=== PATIENT | male | born 1960 | race Caucasian/White ===

== ENCOUNTER 2016-04-12 08:12 | Day surgery (SDC) | payer MEDICARE, BC ==
[~2016-04-12] VITALS: Ht 185.4 cm; Wt 95.6 kg
[~2016-04-12 08:12] MED LIST: ASPIRIN 81M81 MG/TA2 PO; BENADRYL25 M2; BENADRYL25 M2 PO; BUSPAR5 MG PO; CELEXA 20MG20 MG/TAB PO; CELEXA10 MG PO; CELEXA40 MG; CELEXA40 MG PO; CEPHALEXIN500 M1 PO; CETIRIZINE HYDR10 M1 PO; COGENTIN .0.5 MG/TAB PO; COGENTIN 1MG1 MG/TAB PO; DESOXIMETASONE 0.05% TP; EXCEDRIN TENSIO1 CAP PO; GARLIC400 MG PO; GEODON 40MG40 MG PO; GEODON80 MG PO; GLUCOPHAGE1000 MG PO; GLUCOPHAGE500 MG/TAB PO; HUMALOG PEN100 U/ML SC; HUMALOG PEN100 U/ML SQ; HUMALOG100 U/ML SC; HUMALOG100 U/ML SQ; INSLANT SQ; INSULIN; LAMICTAL 100MG100 MG PO; LANTUS100 U/ML SC; LANTUS100 U/ML SQ; LEVOTHROID SO0.15 MG PO; LEVOTHYROXINE0.3 MG PO; LEVOXYL0.125 MG; LEVOXYL0.175 MG PO; LEXAPRO; LEXAPRO20 MG PO; LIPITOR 10MG10 MG PO; LOPERAMIDE HCL2 MG PO; LUMIGAN 2.5 ML2.5 M1 OP; LUMIGAN 7.5 ML7.5 M1 OU; RANITIDINE150 MG PO; SEROQUEL 1100 MG/TAB PO; SEROQUEL 200MG200 MG PO; SEROQUEL 2525 MG/TAB PO; SEROQUEL300 MG; STRATTERA 10MG10 MG PO; SYNTHROID 0.10.15 MG PO; SYNTHROID0.125 MG/T PO; SYNTHROID0.175 MG PO; TESSALON P100 MG/CAP PO; TYLENOL 650MG650 M2 PO; XALATAN EYE DROPS OU; ZANTAC 150MG T150 MG PO
[2016-04-12 08:52] VITALS: BP 110/79; PULSE 81; TEMP 98.4
[2016-04-12] MEDS ORDERED: SEROQUEL 200MG200 MG PO (09:03)
[2016-04-12] MEDS ORDERED: LUMIGAN 7.5 ML7.5 M1 OP (09:04)
[2016-04-12] MEDS ORDERED: SEROQUEL 2525 MG/TAB PO (09:06)
[2016-04-12] MEDS ORDERED: HUMALOG100 U/ML SQ ×2 (09:08→09:09)
[2016-04-12 10:00] VITALS: BP 108/80; PULSE 78; TEMP 97.6
[2016-04-12 10:15] VITALS: BP 107/78; PULSE 80
[2016-04-12 10:30] VITALS: BP 115/78; PULSE 78
[2016-04-12 10:45] VITALS: BP 110/70; PULSE 76
[2016-04-12 13:50] VITALS: BP 99/71; PULSE 88
== END 2016-04-12 11:00 | disposition home or self-care (01) ==
LOC: SDCO 08:12
DX: Z12.11 Encounter for screening for malignant neoplasm of colon (principal); D12.4 Benign neoplasm of descending colon; Z86.010 Personal history of colon polyps; E11.9 Type 2 diabetes mellitus without complications; K21.9 Gastro-esophageal reflux disease without esophagitis; I10 Essential (primary) hypertension; E07.9 Disorder of thyroid, unspecified
CPT/HCPCS: OP; J2250; J3010; J7030

== ENCOUNTER 2016-07-01 19:31 | Emergency (ER) | payer MEDICARE, BC ==
[~2016-07-01] VITALS: Ht 182.9 cm; Wt 90.9 kg
[~2016-07-01 19:31] MED LIST changes: +LUMIGAN 7.5 ML7.5 M1 OP
[2016-07-01 19:33] VITALS: TEMP 100
[2016-07-01 21:13] LABS: BASO # 0.1 (0.0-0.2); BASO % 0.5 % (0.0-2.0); EOS # 0.1 (0.0-0.7); EOS % 0.9 % (0-4.0); GRAN # 9.9 (1.4-6.5); GRAN % 77.6 % (42.2-75.2); HEMATOCRIT 43.5 % (42.0-52.0); LYMPH # 1.7 (1.2-3.4); LYMPH % 13.2 % (20.0-51.0); MEAN CELL VOLUME 83 fl (80.0-100.0); MEAN CORPUSCULAR HEMOGLOBIN 29 pg (27.0-31.0); MEAN CORPUSCULAR HGB CONC 35 g/dl (33.0-37.0); MEAN PLATELET VOLUME 10.2 fl (7.4-10.4); MONO % 7.6 % (1.7-9.3); PLATELET COUNT 273 K/mm3 (130-400); RED BLOOD COUNT 5.25 M/mm3 (4.20-5.60); REDCELL DISTRIBUTION WIDTH-CV 12.2 % (11.5-14.5); WHITE BLOOD COUNT 12.8 K/mm3 (4.8-10.8)
[2016-07-01 21:25] LABS: ADJUSTED CALCIUM 8.9 mg/dL (8.4-10.2); ALANINE AMINOTRANSFERASE 19 U/L (21-72); ALBUMIN 4.1 gm/dL (3.5-5.0); ALKALINE PHOSPHATASE 87 U/L (50-136); ANION GAP 12 mmol/L (7-16); BILIRUBIN,TOTAL 0.8 mg/dL (0.0-1.0); BLOOD UREA NITROGEN 9 mg/dL (9-20); CARBON DIOXIDE 27 mmol/L (22-30); CHLORIDE 97 mmol/L (98-107); CREATININE, serum 0.81 mg/dL (0.66-1.25); GLUCOSE 196 mg/dL (74-106); POTASSIUM 3.8 mmol/L (3.4-5.0); SODIUM 137 mmol/L (137-145); TOTAL PROTEIN 6.7 gm/dL (6.4-8.2)
[2016-07-01 21:26] LABS: ACETAMINOPHEN < 10 ug/mL (10-30); SALICYLATE < 1.0 mg/dL
[2016-07-01 21:35] LABS: AMPHETAMINE URINE NEGATIVE; BARBITURATES URINE NEGATIVE; BENZODIAZEPINES URINE NEGATIVE; BUPRENORPHINE URINE NEGATIVE; METHADONE URINE NEGATIVE; OPIATES URINE NEGATIVE; OXYCODONE URINE NEGATIVE; PHENCYCLIDINE URINE NEGATIVE; PROPOXYPHENE URINE NEGATIVE; THC CANNABINOIDS URINE NEGATIVE
[2016-07-01 23:36] VITALS: BP 137/82; PULSE 91
== END 2016-07-01 23:36 | disposition home or self-care (01) ==
LOC: COL.ER 19:31
PROVIDERS: Emergency Medicine
DX: F23 Brief psychotic disorder (principal); F31.9 Bipolar disorder, unspecified; E10.9 Type 1 diabetes mellitus without complications; Z79.4 Long term (current) use of insulin; F43.10 Post-traumatic stress disorder, unspecified; G80.9 Cerebral palsy, unspecified

== ENCOUNTER 2016-08-31 23:31 | Inpatient (IN) | payer MEDICARE, BC ==
[~2016-08-31] VITALS: Ht 185.4 cm; Wt 96.4 kg
[2016-09-01 00:07] LABS: BASO # 0.1 (0.0-0.2); BASO % 0.4 % (0.0-2.0); EOS # 0.1 (0.0-0.7); EOS % 0.5 % (0-4.0); GRAN # 10.7 (1.4-6.5); GRAN % 80.8 % (42.2-75.2); HEMATOCRIT 45.5 % (42.0-52.0); HEMOGLOBIN 15.6 g/dl (13.5-18.0); LYMPH # 1.3 (1.2-3.4); LYMPH % 9.8 % (20.0-51.0); MEAN CELL VOLUME 82 fl (80.0-100.0); MEAN CORPUSCULAR HEMOGLOBIN 28 pg (27.0-31.0); MEAN CORPUSCULAR HGB CONC 34 g/dl (33.0-37.0); MEAN PLATELET VOLUME 11.1 fl (7.4-10.4); MONO # 1.1 (0.1-0.6); PLATELET COUNT 261 K/mm3 (130-400); RED BLOOD COUNT 5.53 M/mm3 (4.20-5.60); REDCELL DISTRIBUTION WIDTH-CV 12.1 % (11.5-14.5); WHITE BLOOD COUNT 13.2 K/mm3 (4.8-10.8)
[2016-09-01 00:11] LABS: PH 5 (5-8); SQUAMOUS EPITHELIAL None Seen /hpf; URINE APPEARANCE Clear; URINE BACTERIA None Seen /hpf; URINE BILIRUBIN Negative (NEGATIVE); URINE BLOOD Negative (NEGATIVE); URINE COLOR Yellow; URINE GLUCOSE 3+ (NEGATIVE); URINE KETONE Trace (NEGATIVE); URINE RBC 0-2 /hpf; URINE UROBILINOGEN Negative (NEGATIVE); URINE WBC 0-2 /hpf
[2016-09-01 00:21] LABS: ADJUSTED CALCIUM 8.7 mg/dL (8.4-10.2); ALANINE AMINOTRANSFERASE 25 U/L (21-72); ALBUMIN 4.2 gm/dL (3.5-5.0); ALKALINE PHOSPHATASE 124 U/L (50-136); ANION GAP 16 mmol/L (7-16); BLOOD UREA NITROGEN 13 mg/dL (9-20); CALCIUM 8.9 mg/dL (8.4-10.2); CARBON DIOXIDE 22 mmol/L (22-30); CHLORIDE 99 mmol/L (98-107); CREATININE, serum 0.86 mg/dL (0.66-1.25); GLUCOSE 366 mg/dL (74-106); MAGNESIUM 1.6 mg/dL (1.6-2.3); POTASSIUM 3.7 mmol/L (3.4-5.0); SODIUM 138 mmol/L (137-145)
[2016-09-01 00:40] LABS: TROPONIN-I < 0.012 ng/mL (0.000-0.034)
[2016-09-01 01:52] VITALS: BP 127/81; PULSE 115; TEMP 98
[2016-09-01 04:27] VITALS: BP 145/82; PULSE 115; TEMP 98.8
[2016-09-01 07:24] VITALS: BP 142/91; PULSE 112; TEMP 98.3
[2016-09-01 11:35] VITALS: BP 157/78; PULSE 107; TEMP 98.7
[2016-09-01 15:56] VITALS: BP 147/97; PULSE 108; TEMP 98.4
[2016-09-01 21:34] VITALS: BP 144/91; PULSE 102; TEMP 98.4
[2016-09-02] VITALS (7 sets, daily range): BP systolic 102–154; BP diastolic 55–95; PULSE 89–126; TEMP 97.2–100
[2016-09-02 07:56] LABS: BASO # 0.1 (0.0-0.2); BASO % 0.7 % (0.0-2.0); EOS # 0.1 (0.0-0.7); EOS % 1.1 % (0-4.0); GRAN # 8.1 (1.4-6.5); GRAN % 72.2 % (42.2-75.2); HEMATOCRIT 40.7 % (42.0-52.0); HEMOGLOBIN 13.9 g/dl (13.5-18.0); LYMPH # 1.7 (1.2-3.4); LYMPH % 15.2 % (20.0-51.0); MEAN CELL VOLUME 83 fl (80.0-100.0); MEAN CORPUSCULAR HEMOGLOBIN 28 pg (27.0-31.0); MEAN CORPUSCULAR HGB CONC 34 g/dl (33.0-37.0); MEAN PLATELET VOLUME 10.9 fl (7.4-10.4); MONO # 1.2 (0.1-0.6); MONO % 10.5 % (1.7-9.3); PLATELET COUNT 240 K/mm3 (130-400); RED BLOOD COUNT 4.92 M/mm3 (4.20-5.60); REDCELL DISTRIBUTION WIDTH-CV 12.1 % (11.5-14.5); WHITE BLOOD COUNT 11.2 K/mm3 (4.8-10.8)
[2016-09-02 08:15] LABS: CALCIUM 8.5 mg/dL (8.4-10.2); CREATININE, serum 0.73 mg/dL (0.66-1.25); POTASSIUM 3.1 mmol/L (3.4-5.0)
[2016-09-02 14:53] LABS: PROLACTIN 13.3 ng/mL (3.7-17.9)
[2016-09-03 04:14] VITALS: BP 138/92; PULSE 100; TEMP 97.6
[2016-09-03 07:27] LABS: BASO # 0.1 (0.0-0.2); BASO % 0.9 % (0.0-2.0); EOS # 0.6 (0.0-0.7); EOS % 7.1 % (0-4.0); GRAN # 4.6 (1.4-6.5); GRAN % 57.9 % (42.2-75.2); HEMATOCRIT 42.6 % (42.0-52.0); HEMOGLOBIN 14.3 g/dl (13.5-18.0); LYMPH # 1.9 (1.2-3.4); LYMPH % 23.9 % (20.0-51.0); MEAN CELL VOLUME 84 fl (80.0-100.0); MEAN CORPUSCULAR HEMOGLOBIN 28 pg (27.0-31.0); MEAN CORPUSCULAR HGB CONC 34 g/dl (33.0-37.0); MEAN PLATELET VOLUME 11.1 fl (7.4-10.4); MONO # 0.8 (0.1-0.6); MONO % 9.8 % (1.7-9.3); PLATELET COUNT 232 K/mm3 (130-400); RED BLOOD COUNT 5.05 M/mm3 (4.20-5.60); REDCELL DISTRIBUTION WIDTH-CV 12.4 % (11.5-14.5)
[2016-09-03 07:39] LABS: CALCIUM 8.5 mg/dL (8.4-10.2); CREATININE, serum 0.77 mg/dL (0.66-1.25); POTASSIUM 3.8 mmol/L (3.4-5.0)
[2016-09-03 07:40] VITALS: BP 128/88; PULSE 88; TEMP 97.9
[2016-09-03 11:32] VITALS: BP 122/82; PULSE 96; TEMP 98.3
[2016-09-03] MEDS ORDERED: DEPAKOTE ER 50500 MG PO (14:38)
== END 2016-09-03 15:32 | disposition home health service (06) | DRG 948 ==
LOC: COL.ER 23:31 → MEDICAL 09-01 00:21
PROVIDERS: Emergency Medicine; Internal Medicine; Nurse Practitioner Family
DX: R41.82 Altered mental status, unspecified (principal); E87.2 Acidosis; G80.1 Spastic diplegic cerebral palsy; E11.65 Type 2 diabetes mellitus with hyperglycemia; Z79.4 Long term (current) use of insulin; F31.9 Bipolar disorder, unspecified; E87.6 Hypokalemia
CPT/HCPCS: 90791-AI; 99233-AI; 99239; G0378; J0456; J0696; J1650; J1815; J7030; J7050

== ENCOUNTER → 2016-09-06 | Outpatient (CLI) | payer MEDICARE, BC ==
[~2016-09-06] MED LIST changes: +DEPAKOTE ER 50500 MG PO; +DEPAKOTE500 MG PO; +LEVEMIR100 U/ML SQ; +NORCO 325 MG-7.1 TAB PO; +NOVLOG SQ; +VITAMIN D31000 I1 PO
== END ==
LOC: ZCOL.LAB 10:52
DX: R41.82 Altered mental status, unspecified (principal)

== ENCOUNTER 2016-09-21 08:29 | Inpatient (IN) | payer MEDICARE, BC ==
[~2016-09-21] VITALS: Ht 185.4 cm; Wt 96.0 kg
[~2016-09-21 08:29] MED LIST changes: -DEPAKOTE500 MG PO; -LEVEMIR100 U/ML SQ; -NORCO 325 MG-7.1 TAB PO; -NOVLOG SQ; -VITAMIN D31000 I1 PO
[2016-09-21 09:02] LABS: BASO # 0.1 (0.0-0.2); BASO % 0.6 % (0.0-2.0); EOS # 0.6 (0.0-0.7); GRAN # 5.4 (1.4-6.5); GRAN % 57.4 % (42.2-75.2); HEMOGLOBIN 15.5 g/dl (13.5-18.0); LYMPH # 2.4 (1.2-3.4); LYMPH % 25.7 % (20.0-51.0); MEAN CELL VOLUME 85 fl (80.0-100.0); MEAN CORPUSCULAR HEMOGLOBIN 29 pg (27.0-31.0); MEAN CORPUSCULAR HGB CONC 34 g/dl (33.0-37.0); MEAN PLATELET VOLUME 10.4 fl (7.4-10.4); MONO # 0.9 (0.1-0.6); MONO % 9.7 % (1.7-9.3); PLATELET COUNT 267 K/mm3 (130-400); RED BLOOD COUNT 5.44 M/mm3 (4.20-5.60); REDCELL DISTRIBUTION WIDTH-CV 12.2 % (11.5-14.5); WHITE BLOOD COUNT 9.4 K/mm3 (4.8-10.8)
[2016-09-21 09:14] LABS: ADJUSTED CALCIUM 8.9 mg/dL (8.4-10.2); ALBUMIN 3.9 gm/dL (3.5-5.0); BILIRUBIN,TOTAL 0.7 mg/dL (0.0-1.0); CALCIUM 8.8 mg/dL (8.4-10.2); CREATININE, serum 0.79 mg/dL (0.66-1.25); POTASSIUM 3.8 mmol/L (3.4-5.0); TOTAL PROTEIN 6.8 gm/dL (6.4-8.2)
[2016-09-21] MEDS ORDERED: VITAMIN D31000 I1 PO (09:32)
[2016-09-21] MEDS ORDERED: DEPAKOTE500 MG PO (09:33)
[2016-09-21] MEDS ORDERED: LEVEMIR100 U/ML SQ (09:39)
[2016-09-21 11:26] VITALS: BP 138/86; PULSE 95; TEMP 98
[2016-09-21 14:47] VITALS: BP 129/66; PULSE 103; TEMP 98.3
[2016-09-21 17:25] VITALS: BP 128/80; PULSE 100; TEMP 98.1
[2016-09-21 22:00] VITALS: BP 137/89; PULSE 95; TEMP 99.7
[2016-09-22 02:18] VITALS: BP 124/75; PULSE 102; TEMP 99
[2016-09-22 05:00] VITALS: BP 134/65; PULSE 69; TEMP 97.9
[2016-09-22 09:55] VITALS: BP 152/91; PULSE 107; TEMP 99
[2016-09-22 14:03] VITALS: BP 107/71; PULSE 105; TEMP 98.2
[2016-09-22 17:31] VITALS: BP 140/80; PULSE 104; TEMP 98.6
[2016-09-22 22:14] VITALS: BP 126/73; PULSE 106; TEMP 98.4
[2016-09-23 05:41] VITALS: BP 133/71; PULSE 112; TEMP 98.9
[2016-09-23 09:45] VITALS: BP 122/77; PULSE 106; TEMP 98.8
[2016-09-23 14:42] VITALS: BP 128/76; PULSE 108; TEMP 98.5
[2016-09-23 18:10] VITALS: BP 143/82; PULSE 112; TEMP 98
[2016-09-23 22:00] VITALS: BP 131/90; BP 146/50; PULSE 116; PULSE 90; TEMP 97.9; TEMP 98.3
[2016-09-24 02:58] VITALS: BP 146/79; BP 16/79; PULSE 111; TEMP 98.5
[2016-09-24 05:04] VITALS: BP 126/88; PULSE 105; TEMP 98.7
[2016-09-24 09:37] VITALS: BP 108/62; PULSE 100; TEMP 98.6
[2016-09-24 14:32] VITALS: BP 121/69; PULSE 94; TEMP 98
[2016-09-24 17:53] VITALS: BP 150/76; PULSE 103; TEMP 97.9
[2016-09-24 21:53] VITALS: BP 144/95; PULSE 99; TEMP 98.7
[2016-09-25 01:53] VITALS: BP 153/83; PULSE 108; TEMP 99.3
[2016-09-25 05:23] VITALS: BP 147/74; PULSE 101; TEMP 98.2
[2016-09-25 10:12] VITALS: BP 120/70; PULSE 100; TEMP 97.5
[2016-09-25 14:28] VITALS: BP 128/72; PULSE 99; TEMP 98.4
[2016-09-25 17:53] VITALS: BP 138/56; PULSE 94; TEMP 98.3
[2016-09-25 21:36] VITALS: BP 135/64; PULSE 68; TEMP 98
[2016-09-26 01:45] VITALS: BP 136/81; PULSE 98; TEMP 98
[2016-09-26 05:02] VITALS: BP 124/78; PULSE 90; TEMP 97.6
[2016-09-26] MEDS ORDERED: NOVLOG SQ ×3 (09:01)
[2016-09-26] MEDS ORDERED: NORCO 325 MG-7.1 TAB PO (09:02)
[2016-09-26 09:43] VITALS: BP 144/88; PULSE 91; TEMP 98.5
[2016-09-26 09:53] VITALS: BP 144/88; PULSE 91; TEMP 98.5
== END 2016-09-26 11:00 | DRG 200 ==
LOC: COL.ER 08:29 → SURG 09:45
PROVIDERS: Emergency Medicine
PROC: 0W9B30Z Drainage of Left Pleural Cavity with Drainage Device, Percutaneous Approach (ICD-10-PCS; principal; 2016-09-21)
DX: S27.0XXA Traumatic pneumothorax, initial encounter (principal); S22.42XA Multiple fractures of ribs, left side, initial encounter for closed fracture; G80.1 Spastic diplegic cerebral palsy; W18.30XA Fall on same level, unspecified, initial encounter; Z89.412 Acquired absence of left great toe; F41.8 Other specified anxiety disorders
CPT/HCPCS: A9284; J1170; J1815; J2765; J7030; Q9967

== ENCOUNTER → 2017-02-05 | Outpatient (CLI) | payer MEDICARE, BC ==
[~2017-02-05] MED LIST changes: +DEPAKOTE500 MG PO; +LEVEMIR100 U/ML SQ; +NORCO 325 MG-7.1 TAB PO; +NOVLOG SQ; +VITAMIN D31000 I1 PO
[2017-02-05 09:34] LABS: COLLECTION METHOD CLEAN CATCH
[2017-02-05 09:49] LABS: MUCOUS Present /lpf; PH 5 (5-8); SQUAMOUS EPITHELIAL None Seen /hpf; URINE APPEARANCE Clear; URINE BACTERIA None Seen /hpf; URINE BILIRUBIN Negative (NEGATIVE); URINE BLOOD Negative (NEGATIVE); URINE COLOR Yellow; URINE GLUCOSE Negative (NEGATIVE); URINE KETONE Trace (NEGATIVE); URINE LEUKOCYTE ESTERASE Negative (NEGATIVE); URINE PROTEIN(semi-quant) Negative (NEGATIVE); URINE RBC 0-2 /hpf; URINE UROBILINOGEN Negative (NEGATIVE); URINE WBC 0-2 /hpf
== END ==
LOC: ZCOL.LAB 09:22
PROVIDERS: Emergency Medicine
DX: N39.0 Urinary tract infection, site not specified (principal); W06.XXXA Fall from bed, initial encounter

== ENCOUNTER 2017-03-03 13:15 | Outpatient (RCR) | payer MEDICARE, BC | END 2017-03-05 09:17 | disposition home or self-care (01) | LOC: WSPT 13:15 | DX: G80.9 Cerebral palsy, unspecified (principal); R26.2 Difficulty in walking, not elsewhere classified | CPT/HCPCS: G8978-GP; G8979-GP; G8980-GP ==

== ENCOUNTER → 2017-08-13 | Outpatient (CLI) | payer MEDICARE, BC | LOC: COL.RAD 12:08 | DX: G31.89 Other specified degenerative diseases of nervous system (principal); G80.1 Spastic diplegic cerebral palsy ==

== ENCOUNTER → 2017-08-14 | Outpatient (CLI) | payer MEDICARE, BC | LOC: COL.RAD 13:40 | DX: G80.1 Spastic diplegic cerebral palsy (principal); M47.816 Spondylosis without myelopathy or radiculopathy, lumbar region; M48.061 Spinal stenosis, lumbar region without neurogenic claudication; M99.73 Connective tissue and disc stenosis of intervertebral foramina of lumbar region; M51.27 Other intervertebral disc displacement, lumbosacral region ==

== ENCOUNTER 2018-02-15 10:03 | Emergency (ER) | payer MEDICARE, BC ==
[~2018-02-15] VITALS: Ht 188 cm; Wt 95.5 kg
[2018-02-15 10:10] VITALS: TEMP 98.7
[2018-02-15] MEDS ORDERED: BACLOFEN PO (10:38)
[2018-02-15] MEDS ORDERED: LANTUS100 U/ML SQ (10:39)
[2018-02-15 11:34] LABS: BASO % 0.5 % (0.0-2.0); EOS # 0.4 (0.0-0.7); GRAN # 4.6 (1.4-6.5); GRAN % 60.4 % (42.2-75.2); HEMATOCRIT 47.9 % (42.0-52.0); HEMOGLOBIN 16.2 g/dl (13.5-18.0); LYMPH # 1.9 (1.2-3.4); LYMPH % 25.4 % (20.0-51.0); MEAN CELL VOLUME 86 fl (80.0-100.0); MEAN CORPUSCULAR HEMOGLOBIN 29 pg (27.0-31.0); MEAN CORPUSCULAR HGB CONC 34 g/dl (33.0-37.0); MEAN PLATELET VOLUME 10.2 fl (7.4-10.4); MONO # 0.6 (0.1-0.6); PLATELET COUNT 236 K/mm3 (130-400); RED BLOOD COUNT 5.55 M/mm3 (4.20-5.60); REDCELL DISTRIBUTION WIDTH-CV 12.3 % (11.5-14.5)
[2018-02-15 11:46] LABS: ALANINE AMINOTRANSFERASE 22 U/L (21-72); ALBUMIN 3.8 gm/dL (3.5-5.0); ALKALINE PHOSPHATASE 71 U/L (50-136); ANION GAP 8 mmol/L (7-16); AST,SGOT 16 U/L (15-37); BILIRUBIN,TOTAL 0.4 mg/dL (0.0-1.0); BLOOD UREA NITROGEN 9 mg/dL (9-20); C-REACTIVE PROTEIN < 0.5 mg/dL (0.0-0.9); CALCIUM 9.1 mg/dL (8.4-10.2); CARBON DIOXIDE 31 mmol/L (22-30); CHLORIDE 101 mmol/L (98-107); CREATININE, serum 0.69 mg/dL (0.66-1.25); GLUCOSE 219 mg/dL (74-106); POTASSIUM 4.2 mmol/L (3.4-5.0); SODIUM 140 mmol/L (137-145); TOTAL PROTEIN 6.6 gm/dL (6.4-8.2)
[2018-02-15] MEDS ORDERED: LEVAQUIN 750MG750 M1 PO (12:43)
[2018-02-15 13:35] VITALS: BP 141/84; PULSE 77
== END 2018-02-15 13:37 | disposition home or self-care (01) ==
LOC: COL.ER 10:03
PROVIDERS: Physician Assistant
DX: S91.205A Unspecified open wound of left lesser toe(s) with damage to nail, initial encounter (principal); R53.1 Weakness; J18.1 Lobar pneumonia, unspecified organism; F43.10 Post-traumatic stress disorder, unspecified; E11.9 Type 2 diabetes mellitus without complications; Z91.81 History of falling; Z98.890 Other specified postprocedural states; Z79.82 Long term (current) use of aspirin; Z79.4 Long term (current) use of insulin; W19.XXXA Unspecified fall, initial encounter; Y92.009 Unspecified place in unspecified non-institutional (private) residence as the place of occurrence of the external cause

== ENCOUNTER 2018-02-16 13:45 | Outpatient (RCR) | payer MEDICARE, BC ==
[~2018-02-16 13:45] MED LIST changes: +BACLOFEN PO; +LEVAQUIN 750MG750 M1 PO
[2018-02-18] MEDS ORDERED: B-121000 MCG PO (09:11)
[2018-02-18] MEDS ORDERED: COGENTIN 1MG1 MG/TAB PO (09:11)
[2018-02-18] MEDS ORDERED: LUMIGAN 7.5 ML7.5 M1 OP (09:13)
[2018-02-18] MEDS ORDERED: LEVEMIR100 U/ML SQ (09:14)
[2018-02-18] MEDS ORDERED: LIORESAL20 MG PO (09:16)
[2018-04-07] MEDS ORDERED: SEROQUEL 1100 MG/TAB PO (11:56)
[2018-04-07] MEDS ORDERED: LEVEMIR100 U/ML SQ (12:30)
[2018-04-07] MEDS ORDERED: SEROQUEL 2525 MG/TAB PO (15:01)
[2018-04-07] MEDS ORDERED: FLOMAX 0.40.4 MG/CAP PO (15:04)
[2018-04-07] MEDS ORDERED: SYSTANE 0.4%-0.1 SOL OP (15:08)
== END 2018-04-21 | disposition home or self-care (01) ==
LOC: WSPT
DX: G80.1 Spastic diplegic cerebral palsy (principal); Z79.82 Long term (current) use of aspirin; Z79.4 Long term (current) use of insulin; Z79.891 Long term (current) use of opiate analgesic; Z79.899 Other long term (current) drug therapy
CPT/HCPCS: G8978-GP; G8979-GP

== ENCOUNTER → 2018-03-03 | Outpatient (CLI) | payer MEDICARE, BC ==
[~2018-03-03] MED LIST changes: +B-121000 MCG PO; +LIORESAL20 MG PO
== END ==
LOC: ZCOL.LAB 14:31
DX: H92.11 Otorrhea, right ear (principal)

== ENCOUNTER 2018-04-07 08:56 | Inpatient (IN) | payer MEDICARE, BC ==
[~2018-04-07] VITALS: Ht 188 cm; Wt 94.9 kg
[2018-04-07 11:30] VITALS: BP 129/76; PULSE 76; TEMP 98.3
[2018-04-07] MEDS ORDERED: SEROQUEL 1100 MG/TAB PO (11:56)
--- NOTE | 2018-04-07 12:00 | NUR ---
Patient arrived today at 11:00 AM to room 333. His father was by his side and reviewed all medications with this nurse. Dr. Moon's nurse faxed visit note from PCP visit yesterday and this nurse reviewed meds home list med with this list per Dr. Moon. Patient currently not needing the PRN Seroquel 25 mg at this time, so this was left off the med list per patient's father. Patient's father also reported that he is getting 100 mg Seroquel at bed time per Dr. Rizo not the 200 mg at bed time that was listed with Dr. Moon's med list. This change was communicated to Dr. Moon's nurse and this nurse called an updated Dr. Moon this evening as well. Dr. Moon will come by to see patient tomorrow. Victorino is a two person transfer with a gait belt and walker. He gets up very fast and is not steady at all. He has had multiple falls in the past and actually had a fall last night prior to coming over to [facility]. Patient had blood on his scalp and has one small abrasion that appears to be minor. Dr. Cheng put his eyes on it this morning - no sutures needed. Will continue to monitor.
[2018-04-07] MEDS ORDERED: LEVEMIR100 U/ML SQ (12:30)
[2018-04-07] MEDS ORDERED: SEROQUEL 2525 MG/TAB PO (15:01)
[2018-04-07] MEDS ORDERED: FLOMAX 0.40.4 MG/CAP PO (15:04)
[2018-04-07] MEDS ORDERED: SYSTANE 0.4%-0.1 SOL OP (15:08)
--- NOTE | 2018-04-07 20:00 | NUR ---
HS meds all reviewed and given. See admission assessment. Patient alert to self, place and but not to day of week, month or year and has difficulty answering several questions on assessment. Patient max 1 assist transfer to BSC from chair and is only able to take a couple of steps. Sits back in chair. Has bilateral braces on lower legs. Declines snack and Hs care.
--- NOTE | 2018-04-07 23:38 | NUR ---
Patient rests in bed with eyes closed. Respirations with ease.
--- NOTE | 2018-04-08 00:15 | NUR ---
Patient assisted to use urinal, held and emptied by staff.
--- NOTE | 2018-04-08 02:00 | NUR ---
Patient rests with eyes closed. Respirations with ease.
[2018-04-08 05:20] VITALS: BP 116/84; PULSE 81; TEMP 97.7
--- NOTE | 2018-04-08 05:29 | NUR ---
Patient has been resting with eyes closed until this time. Awakened for am med and urinal offered, no void. Returns to resting with eyes closed.
--- NOTE | 2018-04-08 06:45 | NUR ---
Patient used call light to be assisted to the bathroom. He was a max 2 assist with transfer using gait belt and walker. Spent 20 minutes assisting patient with putting braces and shoes on, transferring to toilet and cleaning up urine from floor. Patient has had multiple falls in the past, so chair alarm was on and he did use the call light appropriatly.
--- NOTE | 2018-04-08 11:43 | NUR ---
Patient resting in recliner at this time, call light in reach and alarm is on. Denies pain at this time. Attended all therapies this morning. Ate all his breakfast this morning. See new orders with increased calorie count from 1800 to 1999. Will continue to monitor.
--- NOTE | 2018-04-08 14:02 | NUR ---
Spoke with Dr. Moon - he reported that he wanted Dr. England to see patient not Dr. Ferreira since patient is being followed by Dr. England. This nurse called Dr. Ferreira and updated him on this so he will not need to come back to see patient today. Will contact Dr. England per Dr. Moon's request.
[2018-04-08 15:39] VITALS: BP 133/77; PULSE 88; TEMP 98.3
--- NOTE | 2018-04-08 15:54 | NUR ---
Dr. Cowan was contacted and will be coming by to see patient on Friday of this week.
--- NOTE | 2018-04-08 16:56 | NUR ---
VENKAT met with the patient's father, Sahil, to complete intitial intake. The patient lives in [place] with his father. Sahil reports that the patient needs some assistance with ADLs and has two wheelchairs and a walker. He states that only one of the wheelchairs is small enough to use in the home. The patient also receives home health from [facility] for penitentiary and PT. VENKAT contacted and confirmed services from July at [facility]. The patient's PCP is Dr. Davin Moon and he receives his medications at the [facility]. The patient's father reports no difficulties obtaining his meds. The patient's advanced directives are in EMR. VENKAT did discuss the IPR Team Conference Meeting with the patient's father. VENKAT reviewed physical therapies recommendation for a new walker and for the patient to be re-evaluated next Friday. A family meeting was scheduled for next Friday, 04/15, at 1400. SW to provide the patient and patient's father with the Team Conference Note and continue to follow.
[2018-04-08 18:00] VITALS: BP 133/77; PULSE 88; TEMP 98.3
--- NOTE | 2018-04-08 22:30 | NUR ---
HS meds all reviewed and given earlier. Patient sitting up in recliner until now. Up x 1 to BSC max 2 assist and had lg formed catalino bueno. Nurse wipes patient and pulls brief down and up. Patient incontinent lg amount of urine through pullup and total assist to change. Assisted max 1 to. Nurse removes shoes and changes patient gown. Attends on. Patient denies pain or needs.
--- NOTE | 2018-04-09 01:00 | NUR ---
Assisted patient with attends for him to use the urinal. Voided small amount.
--- NOTE | 2018-04-09 03:15 | NUR ---
Patient has been resting with eyes closed. Respirations with ease.
--- NOTE | 2018-04-09 04:15 | NUR ---
Patient used urinal independently resting back in bed. Brief dry. Voided 400mls. Nurse emptied. Denies pain or needs. Reports yes to been sleeping.
[2018-04-09 05:21] VITALS: BP 117/84; PULSE 71; TEMP 98
--- NOTE | 2018-04-09 09:39 | NUR ---
Left message for Dr. Moon's nurse asking to consider changing ADA diet to Regular as pt is acustomed to regular diet at home, dislikes artificial sweetners (per report), and his BGs have varied 45-276. Also, requested verification for DVT prevention, has SCD's. Report from DAVION Adorno. Pt in chair with eugene leg braces in place, urinal emptied and returned to tray. Pt took pills w/ water. Alert, pleasant, poor memory. States his dad Sahil cares for him at home almost 07/10.
--- NOTE | 2018-04-09 15:30 | NUR ---
VENKAT and SW student met with the patient and patient's father to discuss the IPR Team Conference Note and inform of the team re-evaluating the patient next , 04/15, with a family conference at 1400. The patient reports that he is in agreeance to the plan. SW answered all the fathers questions. The patient's father did have questions on the patient's blood sugar and diet. SW to inform the patient's nurse and continue to follow.
[2018-04-09 16:35] VITALS: BP 120/91; PULSE 93; TEMP 98.6
--- NOTE | 2018-04-09 20:25 | NUR ---
Pt had urinary incont in chair, two assist for cleaning up. Max verbal cues and mod physical assist for amb w/ walker. Pleasant, denies pain. Pt in chair with eugene leg braces in place, urinal & call light in reach, chair alarm on. Report to DAVION Taylor
--- NOTE | 2018-04-09 20:30 | NUR ---
PT SITTING IN RECLINER. ALARM SET. WATCHING BASKETBALL GAME. CALM AND COOPERATIVE. SEIZURE PRECAUTION PADS ON BED. PT DENIES PAIN AT PRESENT TIME. TSLO BRACES TO BLE. WEARS PULLS UPS FOR OCCASIONAL URINAL SPILLAGE. ACCUCHECK 96. ATE 100% HS SNACK. CALL LIGHT IN REACH.
--- NOTE | 2018-04-09 21:00 | NUR ---
MINILAB OPERATOR CHANGED PT'S PULL UPS FROM URINAL SPILLAGE. CLEANED AND APPLIED BARRIER OINTMENT.
--- NOTE | 2018-04-10 | NUR ---
BED ALARM SUNDING. PT SITTING ON EDGE OF BED. VERY UNSTEADY D/T SPACITY. PT TAKING SCD'S OFF. "I CAN'T STAND THEM." ASSISTED BACK TO BED. NEEDED ASSIST WITH LIFTING LEGS INTO BED. CALL LIGHT FOUND ON THE FLOOR. NOW WITHIN REACH. SHOWED PT CALLIGHTS ON SIDERAILS. ALARM RESET.
[2018-04-10 03:58] VITALS: BP 121/72; PULSE 94; TEMP 97.3
--- NOTE | 2018-04-10 08:15 | NUR ---
Report from DAVION Taylor. Pt ate breakfast in bed, took pills with water. Urine concentrated in urinal, emptied and on tray. 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
--- NOTE | 2018-04-10 10:30 | NUR ---
SCDs off as pt OOB for therapies
--- NOTE | 2018-04-10 12:04 | NUR ---
Pt opened plastic container fruit was in, unwrapped saran wrap from sandwich plate, opened bag of chips.
--- NOTE | 2018-04-10 14:23 | NUR ---
Admission FIM scores were reviewed by the team. Team judged the nursing score (1) for Problem Solving to be scored incorrectly as documentation read "needs direction nearly all the time". While the patient dues have difficulty w/ problem solving, they feel he is able to solve routine problems more than 25% of the time but less than 50% of the time; therefore, he should be a FIM score of 2 for Problem Solving.---Dora Coon, Cat Dog Or Other Pet Groomer
[2018-04-10 14:48] VITALS: BP 121/81; PULSE 93; TEMP 98.6
--- NOTE | 2018-04-10 19:14 | NUR ---
Pt toileted at shift change. Report to DAVION Taylor. See Dr. Cowan's new orders. Starting Sinemet (does not have Parkinson's, but hopes this will help with ataxic gait).
--- NOTE | 2018-04-10 20:00 | NUR ---
PT SITTING IN RECLINER. WATCHING TV. CHEERFUL. JOKING AROUND. PT DENIES PAIN. TSLO BLE IN PLACE. MAX 1 ASSIST WITH WC TO BR. NEEDS CUING WITH EACH STEP. VERY UNSTEADY. GENERALIZED ATAXIA. WAITING TILL LATER TO GET READY FOR BED. CHAIR ALARM SET. CALL LIGHT IN [facility].
[2018-04-11 04:45] VITALS: BP 136/83; PULSE 93; TEMP 98.2
--- NOTE | 2018-04-11 07:30 | NUR ---
PT SITTING UP IN BED EATING. ATE 100% OF MEAL. PT TAKES MEDS WELL. NSG ASSESSMENT COMPLETED. PT RESTING.
--- NOTE | 2018-04-11 15:31 | NUR ---
FATHER MADE OUT HIS MEALS AND THIS WAS FAXED. PT DRANK ALL HIS GLUCERNA. DENIES PAIN OR NEEDS. WATCHING TV.
[2018-04-11 16:38] VITALS: BP 111/83; PULSE 85; TEMP 97.6
--- NOTE | 2018-04-11 22:20 | NUR ---
MAX 1 ASSIST TO BR WITH WALKER AND BRACES TO LEGS. VERY UNSTEADY. NEEDS CUES FOR SAFETY. VOIDED W/O DIFF. BACK TO CHAIR. CHAIR ALARM SET.
[2018-04-12 04:36] VITALS: BP 134/89; PULSE 88; TEMP 98.2
--- NOTE | 2018-04-12 07:58 | NUR ---
Report from DAVION Taylor. Pt was in bed, max cues to come from laying to sitting with mod assist for trunk balance. Staff donned eugene leg braces and donned pants up to knees, brought shirt to pt and he changed out of gown and into t-shirt. Max assist with cues and physical assist to amb to BR and back to chair. Does not seem to amb better this morning than two days ago, will continue to monitor throughout the day.
--- NOTE | 2018-04-12 08:09 | NUR ---
Glasses in place, call light in reach, chair alarm on. Pt started to get up from toilet before staff was ready, stressed importance of safety, pt verbalizes understanding. Pt cued how to open milk carton with fork, he is removing lid from OJ and wrap from cereal bowl independently, poured milk on cereal.
--- NOTE | 2018-04-12 09:23 | NUR ---
SCDs off as pt OOB
--- NOTE | 2018-04-12 09:35 | NUR ---
Pt requested to use toilet, one max assist with cues and physical placement of walker as pt amb to BR, ataxia still worse than two days ago.
--- NOTE | 2018-04-12 11:49 | NUR ---
Pt asked to toilet, assisted, movements are more exaggerated but not productive in ambulating.
[2018-04-12 17:55] VITALS: BP 127/108; PULSE 97; TEMP 99
--- NOTE | 2018-04-12 20:20 | NUR ---
Pt incont of urine while in chair. Max assist to amb to BR with FWW and change, cleanse, don new pull up and gown, amb to bed and braces removed, SCDs placed, alarm on, call light and urinal in reach. Report to DAVION Farley.
--- NOTE | 2018-04-12 20:50 | NUR ---
Faxed update on pt's ambulation to [facility] per Dr. Cowan's request for feedback.
--- NOTE | 2018-04-13 01:24 | NUR ---
THE PT WAS BEDRESTING, INC OF URINE, HAD GOTTEN ABOUT 150CC IN THE URINAL, VERBALIZED OF INCREASING INC AND DIFFICULTY MANAGING HIS TOILETING. HE VERBALIZED THAT HE SPENDS A LOT OF TIME EITHER ALONE OR WITH HIS FATHER, HE HAS A SISTER AND NEICES AND GREAT NEICES, BUT DOESN'T GET TO SPEND MUCH TIME WITH THEM. STATED THAT HE HAS, "GOTTEN TO WHERE I REALLY CAN'T WALK ANYMORE, THIS IS REALLY HARD FOR ME AND HARD FOR MY FATHER". DISCUSSED ASSISTED LIVING, SO HTAT HIS FATHER COULD STILL VISIT HIM BUT NOT BE SOLELY CARING FOR HIM, ROUND THE CLOCK ASSISTANCE\\ SUPERVISION, ACTIVITIES IN GROUPS AND INDIVIDUAL. HE STATED THAT HE WOULD LIKE TO TALK WITH A COFFEE SAMPLER ABOUT THIS, STATED THAT HE IS HAVING INCREASED DIFFICULTIES WITH READING AND ASKED IF SOMEONE COULD READ THE INFORMATION WITH HIM. HE REQUIRES SOME ASSISTANCE WITH CARES. READY FOR BED ABOUT 2230. CALLED FOR LIGHTS AND TV OFF.
--- NOTE | 2018-04-13 01:35 | NUR ---
HS ACCUCHECK WAS 71. HS SNACK OF CUP OF ICE CREAM GIVEN.
--- NOTE | 2018-04-13 04:37 | NUR ---
PT WAS MOVING AROUND IN THE BED, SET OFF BED ALARM, STATED THAT HE WAS TRYING TO GET INTO POSITION TO USE HIS URINAL, ASSISTED WITH PLACEMENT AND EMPTYING. DENIED PAIN.
[2018-04-13 05:35] VITALS: BP 122/76; PULSE 74; TEMP 97.7
--- NOTE | 2018-04-13 07:10 | NUR ---
Report received from DAVION Farley. Pt in bed resting, assisted to use urinal. Breakfast provided and moved pt to chair with 2 person assist. chair alarm on, will continue to monitor.
--- NOTE | 2018-04-13 08:00 | NUR ---
Assessment charted. Pt in bed resting, feeling well, gets up to chair with 2 person assist. tolerated well but gait very unsteady. Pt alert and oriented. See assessment for abrasions. Pt used urinal with assistance. Denies pain. Will continue to monitor.
[2018-04-13 15:29] VITALS: BP 137/88; PULSE 94; TEMP 98.2
--- NOTE | 2018-04-13 18:00 | NUR ---
Pt has done well today. Continues to require 2 people in room for transfers and needs continuous cueing to move feet as they "stick to floor" easily. Taking PO well. Visitors this afternoon. Did find small petechial rash to outer hips and belt area of sweatpants. No excoriation noted. Denies needs, replaced mepilex dressings to legs after bath today, will give bedside shift report to nightshift nurse who will resume care.
--- NOTE | 2018-04-14 01:26 | NUR ---
THE PT WAS SITTING UP IN HIS RECLINER AT SHIFT CHANGE, WATCHING TV, ASKED TO GO TO THE BR FOR A BM, MAX 2 ASSIST TO AMBULATE THERE, NO BM, THEN TO THE BED. THE PT HAD BEEN INC OF URINE IN THE CHAIR. HYGIENE ASSISTED, POSITIONED FOR COMFORT. WATCHES TV, ACCUCHECK WAS 68, HS SNACK, MEDS TAKEN WHOLE, PT REQUIRES OBSERVATION AND CUES TO NOT DROP THE PILLS. MEDS TAKEN WHLE WITH WATER. HE CALLED FOR ASSISTANCE TO THE BR AGAIN AT O115, MAX 2 TO TRANSFER TO THE [facility], CUED TO TUCK HIS PENIS IN, BUT HE STILL URINATED ON THE FLOOR. GAS EXPELLED, TO THE BED, POSITIONED FOR COMFORT. ENCOURAGED TO SLEEP THERAPY STARTING IN THE AM.
[2018-04-14 06:32] VITALS: BP 134/85; PULSE 87; TEMP 98
--- NOTE | 2018-04-14 10:39 | NUR ---
Initial visit; Patient thanked Food Operations Manager for looking in on him and offering encouragement and prayer and for keeping him in her prayers.
--- NOTE | 2018-04-14 16:00 | NUR ---
Patient resting in the recliner at this time, call light in reach watching television. Patient reports not having any more hallucinations this afternoon. Dr. Santos DC'd patients Sinemet this morning due to patient having confusion and patient's father reporting hallucinations' yesterday. Will continue to monitor. Denies pain at this time. Tolerating diet well.
[2018-04-14 18:25] VITALS: BP 166/89; PULSE 97; TEMP 98.8
--- NOTE | 2018-04-15 01:30 | NUR ---
THE PT WAS SITTING UP IN HIS RECLINER SHIFT REPORT WAS DONE. SHORT TIME LATER, CHAIR ALARM HEARD, THE PT WAS ATTEMPTING TO GET UP OUT OF THE CHAIR, VERBALIZED URGENT NEED FOR COMMODE. BSC TO HIM, STOOD, PIVOT, LOWERED PANTS AND SAT, URINATING O HIS CLOTHES. HYGIENE ASSISTED, NEW DEPENDS AND HOSPITAL GOWN ON HIM, STOOD, MAX ASSIST TO THE BED. POOR FOLLOW THROUGH WITH CUES.FLOPPED ONTO THE BED. REPOSITIONED FOR COMFORT. AT OO15, HE WAS SETTING OFF HIS BED ALARM HE HAD SCOOTED DOWN TO THE FOOT OF THE BED WITH HIS LEGS HANGING OFF OF THE END. CUES TO GET HIM UP INTO THE BED PROPERLY, STATED THAT HE DIDN'T KNOW WHERE HE WAS TRYING TO GO OR WHAT HE WAS TRYING TO DO, HE ASKED IF HE WAS GOING TO GET ASHOWER SOON. REORIENTED TO THE TIME AND HE IS AWARE THAT IT WAS 0015 AND THAT HE WOULD SHOWER WITH OT IN THERAPY TOMORROW.
--- NOTE | 2018-04-15 01:49 | NUR ---
THE PT'S ACCUCHECK AT HS WAS 54, 2 ICE CREAMS AND MILAN CRACKERS WITH PEANUT BUTTER. ATE 100 %.
--- NOTE | 2018-04-15 02:43 | NUR ---
BEDRESTING WITH EYES CLOSED, RESP EVEN, APPEARS TO GET ADEQUATE SLEEP.
--- NOTE | 2018-04-15 03:09 | NUR ---
THE PTS BED ALARM SOUNDED, UPON ENTERING HIS ROOM, HE STATED THAT HE WAS "TRYING TO READ THIS NOTE", REFERRING TO THE PAIN CHART. GIVEN TO HIM WITH LIGHT ON, THEN REPOSITIONED HIM IN THE BED, ASKED HIM TO NOT GET UP WITHOUT CALLING FOR HELP FIRST AND SETTING OFF HIS ALARM. HE SEEMED UPSET WHEN THIS NURSE TURNED HIS LIGHTS OFF AND WAS EXITING HIS ROOM. STATING, "WELL, I GUESS I'LL JUST LAY HERE AND DO NOTHING!", THIS NURSE ASKED HIM WHAT HE WANTED TO DO IT IS 3AM. HE WAS ENCOURAGED TO TRY AND SLEEP, READ OR WATCH TV.
[2018-04-15 06:11] VITALS: BP 152/94; PULSE 88; TEMP 98.3
--- NOTE | 2018-04-15 06:16 | NUR ---
THE PT SET OFF THE BED ALARM AGAIN, STATED THAT HE WASN'T GETTING UP, "JUST MOVING AROUND", ENCOURAGED HIM TO CALL FOR ASSISTANCE HE SETS OFF A LOUD ALARM. DELONTE 296.
--- NOTE | 2018-04-15 09:20 | NUR ---
Spoke with with Dr. Moon this morning regarding patient's sinimet. He requested that Dr. Cowan be contacted regarding the changes in behavior when being on the Sinemet and the DC of it yesterday per Dr. Santos. This nurse called and left message for Dr. Cowan's nurse to return my call regarding the above. Awaiting a return call.
--- NOTE | 2018-04-15 10:33 | NUR ---
Patient currently receiving ST at this time. Patient has been very anxious today stating that he is bored. Asked ST for any ideas for activities for him to do in evening to occupy his time. Will try word search this afternoon.
--- NOTE | 2018-04-15 13:47 | NUR ---
Patient currently working with PT at this time. Patient continues to have spaciticity difficulties, with patient stating, "My feet are stuck to the floor." Call placed to Dr. Alba regarding patient not being able to sleep last night (Wide awake at 3 AM) per staff. Dr. Alba communicated to this nurse that the Quetiapine at HS was DC'd on 04/13/18 to see if that med could be causing more spaciticity and mobility issues. This nurse reported to Dr. Alba that Patient was having hallucinations on 04/14/18 per staff and patient father and that patient was trying to put his pants on over his head at one point. This was discussed with Dr. Santos and the Sinemet was DC'd per Dr. Santos at that time. Dr. Alba did educate this nurse that Sinemet could cause this type of behavior, but that I needed to make sure and follow up with Dr. England about this change. Dr. Alba ordered Trazadone 50-100 mg Q HS to start tonight, but wanted to have Dr. Cowan review all these med changes prior to putting the order in. This nurse placed a call to Dr. Cowan, awaiting a return call at this time.
--- NOTE | 2018-04-15 15:24 | NUR ---
ALYSE, IPR director, PT, OT, and ST met with patient and his family for a family meeting. Therapy went over patients progress since admit and what the family will need to do at home. Family has concerns about bathing and using the bathroom as well as over night care as patient weighs more than his father who is his primary caregiver. They report [facility]ris does PT with them. We informed them our recommendation would be pt, ot, st, and sn to follow after this discharge and explained that they wouldn't be able to be there daily for bath care etc. After family meeting alyse met with them to discuss private duty home health providing costs and what they can provide. They are interested in hiring someone to come morning and evening to help with bathing and getting him ready for the day/bed. They report patient wouldnt qualify for medicaid at this time. ALYSE talked with them about meeting with an bankruptcy attorney about splitting assests as he lives with his father. Family is open to home assessment and ALYSE will call them later this week to confirm a time friday. Plan is to re [facility] fri04/22/18.
--- NOTE | 2018-04-15 16:24 | NUR ---
Received return call from Dr. England and she restarted patient on Seroquel to begin tonight. If any side effects from Seroquel are observed over night, Sinemet is to be held and Dr. England called. If patient tolerates well nursing staff is to start 1/2 tab of sinemet TID to be taken 1 hour prior to eating his meals. If there are any side effects such as (hallucinations or confusion) from the Sinemet observed nursing staff is to call Dr. Coawn with an update and she will make any changes, recomendations from there. This was communicated to Dr. Alba, Dr. Moon's nurse and to patient's family. This was also put in an additional nursing note to provide information for on coming nurses.
[2018-04-15 19:00] VITALS: BP 128/67; PULSE 111; TEMP 98.5
[2018-04-15 19:50] VITALS: PULSE 96
--- NOTE | 2018-04-15 20:00 | NUR ---
PT SITTING IN RECLINER. CHAIR ALARM SET. PT CALM AND COOPERATIVE AT THIS TIME. ASSISTED TO BSC. MAX 1 ASSIST. VERY UNSTEADY. BRACES TO BILAT LOWER LEGS. HAD MED SOFT FORMED BROWN BM. BACK TO RECLINER. ALARM SET. CALL LIGHT IN REACH. DENIES PAIN. ACCUCHECK 62. ASYMPTOMATIC. GAVE OJ, PEANUT BUTTER AND MILAN CRACKERS. SEE FOR F/U ACCUCHECK.
--- NOTE | 2018-04-15 20:30 | NUR ---
O2 SAT 95% ON 4L. O2 TURNED DOWN TO 3 L. WILL RECHECK 2 SAT AGAIN IN AN HR.
--- NOTE | 2018-04-16 06:02 | NUR ---
NIGHT WAS UNEVENTFUL. SLEPT WELL. NO HALLUCINATIONS. SINEMENT GIVEN.
--- NOTE | 2018-04-16 06:04 | NUR ---
ACCUCHECK 301.
[2018-04-16 06:05] VITALS: BP 129/78; PULSE 80; TEMP 97.4
--- NOTE | 2018-04-16 11:09 | NUR ---
Report from DAVION Taylor. Pt ate breakfast sitting up in bed. Glasses and leg braces in place. To chair after breakfast, alarm on. Oral cares brought to tray. Call light in reach.
--- NOTE | 2018-04-16 11:10 | NUR ---
Pt denies nausea/vomitting, hallucinations, pain. Did report not sleeping well last night. Night nurse stated pt had a "good night, so gave sinemet this morning." Pt asked to toilet, donned gait belt, brought walker, pt stood without needing assistance up, verbal cues given to gain balance before walking, pt continues to push walker too far ahead of himself, therefore cued about this as well. Pt ambulated better this morning than any time on Friday when this nurse last cared for pt. Still some ataxia wherein pt's feet bouncing onto heel in same place, resolves with cue to "diamond picker your foot". Leg strength improved. Cognition about the same as Friday, alert, follows direction, pleasant.
--- NOTE | 2018-04-16 16:08 | NUR ---
VENKAT called and left a vm for patients father about home eval. will follow up tomorrow.
[2018-04-16 17:05] VITALS: BP 117/77; PULSE 92; TEMP 98.3
--- NOTE | 2018-04-16 17:49 | NUR ---
Pt's father visiting, asked questions about BGs and nurse wrote down these last three days- he noticed pt low at HS. Pt denies awareness of hypoglycemia when it happens. Father made menus for tomorrow. Pt in chair with alarm on, call light in reach. Denies pain. A&O, pleasantly cooperative.
--- NOTE | 2018-04-16 19:39 | NUR ---
Report to Puma Baum.
--- NOTE | 2018-04-16 20:00 | NUR ---
Patient in chair resting. Alert and oriented x 3. Shift assessment complete. X2 assist to restroom, with walker and gait belt. Unsteady gait. Requires verbal cues to move. Follows instructions. Denies further needs at this time.
--- NOTE | 2018-04-16 21:45 | NUR ---
Contacted Dr. Moon patient blood sugar at HS was 38, patient denies feeling symptoms of low blood sugar. Offered patient orange juice and snack. Rechecked BS 15 minutes after snack, BS at 44. Dr. Moon aware, per physisian, hold HS insulin. Will continue to monitor.
[2018-04-17 05:51] VITALS: BP 137/90; PULSE 103; TEMP 98.6
--- NOTE | 2018-04-17 06:29 | NUR ---
Patient has rested well through the night. Minimal needs. Incontinent care provided this AM. Denies pain or further needs at this time. Will report off to day shift.
--- NOTE | 2018-04-17 09:34 | NUR ---
Report from DAVION Baum. Pt in bed for breakfast, urinal at bedside, assist emptying. Pt states he slept well last night, is a little groggy, also had low blood glucose last night and levemir was held per Dr. Moon's order. PT arrived and with nurse assisted donning bilateral leg braces, shoes and pants, new pull ups as pt was incont of urine. Pt donned sweater with min trunk support d/t poor sitting balance. CGA with gait belt and verbal cues to stand with walker. PT commented that pt did not walk as far upon initial visist this morning.
--- NOTE | 2018-04-17 09:59 | NUR ---
Home assessment scheduled for friday at 1. Patients father will pick him up.
--- NOTE | 2018-04-17 13:40 | NUR ---
Left message for Dr. Cowan's nurse re: pt's condition and ambulation.
[2018-04-17 18:09] VITALS: BP 91/68; PULSE 90; TEMP 98
--- NOTE | 2018-04-17 19:00 | NUR ---
Dr. Cowan aware of pt's increased urinary incont, decreased ability to amb as well as yesterday, no N/V/D, no hallucinations, but decreased speech volume and clarity- however, pt had low BG last night and was high this am, pt reports sleeping well. Plan to continue meds as ordered, f/u Friday, but do call if any extreme changes before then.
--- NOTE | 2018-04-17 21:00 | NUR ---
Patient assisted 2 assist to stand and take few steps to bed. Patient removes shirt. Max assist lower body undressing and use of urinal. Denies pain. Oriented x 4. HS meds all reviewed and given. Took shake for snack earlier.
--- NOTE | 2018-04-17 23:00 | NUR ---
Rests with eyes closed. Respirations with ease.
--- NOTE | 2018-04-18 02:49 | NUR ---
Patient has been resting with eyes closed. Awakened and urinal placed by nurse. Denies needs.
[2018-04-18 05:08] VITALS: BP 118/82; PULSE 87; TEMP 97.2
--- NOTE | 2018-04-18 05:21 | NUR ---
PATIENT AWAKENED FOR MEDS AND URINAL PLACED/EMPTIED BY NURSE. VOIDED 200MLS DK YELLOW URINE. RETURNS TO RESTING WITH EYES CLOSED.
--- NOTE | 2018-04-18 10:21 | NUR ---
Patient currently at [facility] today. Patient in pleasent mood. Ate all his breakfast. Reported sleeping well last night. Had no incontinence last night per nurse report. Was incontinent in brief only this morning. Denies pain this morning. Will continue to monitor.
--- NOTE | 2018-04-18 13:09 | NUR ---
Patient currently resting in recliner at this time, call light in reach and chair alarm on. Patient ate 100% of his lunch. Denies pain at this time. Reports that he played [employer]boxee at [facility] today and had fun. Filled his drink with ice. Will continue to monitor.
[2018-04-18 16:33] VITALS: BP 120/81; PULSE 92; TEMP 98.1
--- NOTE | 2018-04-18 21:50 | NUR ---
Patient sits up in recliner and stands with CGA then transfers slowly with frequent verbal cueing to the bathroom. Voids. Removes shirt. Nurse assists with gown on. Total assist with lower body undressing. Heavy mod assist to bed. Rests self back in bed. Denies pain. HS meds all reviewed and given. Rests with eyes closed shortly after.
--- NOTE | 2018-04-19 02:01 | NUR ---
Patient has been resting with eyes closed respirations with ease.
--- NOTE | 2018-04-19 03:30 | NUR ---
PATIENT AWAKENED BRIEFLY AND NURSE PLACED URINAL. RETURNS TO RESTING WITH EYES CLOSED.
[2018-04-19 03:44] VITALS: BP 120/88; PULSE 85; TEMP 98.1
--- NOTE | 2018-04-19 07:51 | NUR ---
Patient resting in bed at this time, call light in reach, bed alarm on and has SCD's on. Patient reports sleeping well last night. Tolerating diet well eating 100% of his meals. Denies pain at this time. Will continue to monitor.
[2018-04-19 16:31] VITALS: BP 127/75; PULSE 87; TEMP 98.2
--- NOTE | 2018-04-19 19:30 | NUR ---
Patient ambulated to and from bathroom multiple times today and was a two max assist using gait belt and walker. He was incontinent in brief x 2 this shift. Patient did work on some word search and writing words out per ST suggestion with this nurse. Small area to right calf is scabbed over. Removed mepilex and applied a bandaid. Will continue to monitor. Patient slept very well last night and had no incontinent episodes per night nurse. Patient required a lot of cueing with transfers, but did very well when asking him to march when needing to move his feet. He gets his directions mixed up at times, such as Left or Right and requires instruction for correcting this. Patient in pleasent mood and was looking forward to watching the football gave tonight. Reported off to night nurse.
--- NOTE | 2018-04-20 03:18 | NUR ---
THE PT WAS SITTING UP IN HIS RECLINER WITH HIS FATHER IN TO VISIT, THEY WATCH THE [employer] GAME TOGETHER. HE HAD AN ACCUCHECK OF 119, HS SNACK TAKEN AND HE CALLED FOR ASSISTANCE TO GET READY FOR BED, ABLE TO DOFF HIS SWEATER, ASSISTED WITH SHOES AND BRACES, PANTS AND DONNING OF THE GOWN, MAX 2 ASSIST TO AMBULATE, ASSISTED WITH LEGS INTO THE BED, BOTTOM SLIGHTLY ERYTHEMIC, BARRIER OINTMENT USED, HAD A MED TO LARGE SF BROWN BM, ASSISTED WITH HYGIENE. APPEARS TO GET ADEQUATE SLEEP.
--- NOTE | 2018-04-20 04:54 | NUR ---
THE PT IS BEDRESTING WITH EYES CLOSED, RESP EVEN, APPEARS TO GET ADEQUATE SLEEP.
[2018-04-20 05:04] VITALS: BP 108/73; PULSE 73; TEMP 97.7
--- NOTE | 2018-04-20 07:00 | NUR ---
Report received from DAVION Farley. Pt in bed resting, eating breakfast, denies needs, will continue to monitor.
--- NOTE | 2018-04-20 10:35 | NUR ---
Assessment charted. Pt resting in wheelchair working on ST worksheets. Denies pain. Anticipating shower shortly. Taking PO well, will continue to monitor.
--- NOTE | 2018-04-20 15:31 | NUR ---
Dr. Cowan called for upate on patient, order received for medication changes, implemented changes.
[2018-04-20 16:34] VITALS: BP 108/66; PULSE 93; TEMP 98.3
--- NOTE | 2018-04-20 17:24 | NUR ---
Pt has done well today. Family to visit this afternoon. Continues to take food in very well. Denies pain, will give bedside shift report to nightshift nurse who will resume care.
--- NOTE | 2018-04-21 01:29 | NUR ---
THE PT WAS RESTING IN HIS RECLINER THE SHIFT BEGAN, CALLED FOR HELP TO VOID, THIS NURSE WAS UNABLE TO GE TO HIM FAST ENOUGH AND HE VOIDED INC IN HIS DEPENDS, ON HIS RECLINER AND TO THE FLOOR, ASSITED WITH HYGIENE, FLOOR CLEANED, TRANSFERRED TO THE BED, POSTIONED FOR COMFORT, ACCUCHECK 102, ICE CREAM FOR HS SNACK, CALLED TO REQUEST HIS HOME EVAL RECOMMENDATIONS, COMMENTS ON ALL THE CHANGES THAT WERE RECOMMENDED, DIDN'TAGREE WITH THE SHOWER DOORS BEING DISMANTELED IN TONI OF SHOWER CURTAIN, RATIONALE DISCUSSED WITH HIM. THAT HIS FATHER ISN'T GETTING YOUNGER, NEEDS SAFE ENVIROMENT TO ALLOW FOR HIS SAFE CARE, EASILY POSSIBLE FOR HIM, MAX PATRICA. WHEN ASKED IF HE CAN GET OUT INTO THE YARD ON HIS OWN, HE ASKED, "WHY WOULD i DO THAT?I'M NOT AN OUTDOOR PERSON.", EXPLAINED HOW SUNSHINE, FREAH AIR AND NATURE SERVE TO ELEVATE MOOD. DISMISSED THIS IDEA. HE CALLED X 2 FOR ASSITANCE WITH URINAL BUT DIDN'T VOID. APPEARS TO GET ADEQUATE SLEEP.
[2018-04-21 05:41] VITALS: BP 118/72; PULSE 70; TEMP 97.8
--- NOTE | 2018-04-21 05:56 | NUR ---
APPEARS TO GET ADEQUATE SLEEP, AWAKENED THIS AM FOR VS- VSS. PT IS PLEASANT, NO C\O PAIN OR PROBLEM.
--- NOTE | 2018-04-21 08:38 | NUR ---
Report from DAVION Farley. Pt ate breakfast sitting up in chair, alarm on, call light in reach, glasses in place. Takes pills whole with thin liquids. Denies pain. Called to toilet, TEST GRADER assisted. Pt with ST now.
[2018-04-21 16:22] VITALS: BP 104/69; PULSE 87; TEMP 97.5
--- NOTE | 2018-04-21 18:25 | NUR ---
No acute changes. Father wrote menus for tomorrow. Pt to chair between therapies, eugene braces to BLE. Denies pain.
--- NOTE | 2018-04-22 01:19 | NUR ---
THE PT WAS SITTING UP IN HIS RECLINER FOR ALL OF THE EVENING. WATCHED BASKET BALL ON TV. HE IS A 2 ASSIST FOR SAFETY TO AMBULATE TO THE BR TO VOID AND ATTEMPTED BM, NOT SUCCESSFUL. DOFFED PANTS, SLEEPS IN SWEAT SHIRT AND DEOENDS. SCD'S ON, ACCUCHECK WAS 98, HS SNACK OF ICE CREAM AND MILAN CRACKER WITH PEANUT BUTTER. HE HAD HIS GLUCERNA EARLIER IN THE EVENING.
--- NOTE | 2018-04-22 02:39 | NUR ---
BEDRESTING WITH EYES CLOSED, RESP EVEN.
[2018-04-22 05:22] VITALS: BP 129/70; PULSE 76; TEMP 97.5
--- NOTE | 2018-04-22 10:02 | NUR ---
Patient attending therapy at this time. Patient was independent on opening items with morning meal. Tolerating diet well today. Dr. England adjusted meds see new orders. Denies pain this morning.
--- NOTE | 2018-04-22 13:07 | NUR ---
VENKAT and SW student met with patient and his father to present IPR team conference notes. SW discussed discharge plan of friday and asked them if they were wanting to add more than the PT/OT/SN/ST that we are recommending him go home with. VENKAT discussed time on friday and told him that it could be any time in the afternoon but what works for them we will work around. patients sister is coming and would like to talk as well. SW will follow up with them when she gets here.
[2018-04-22 18:04] VITALS: BP 123/81; PULSE 80; TEMP 98
--- NOTE | 2018-04-22 18:30 | NUR ---
Patient resting in recliner at this time, call light in reach and alarm is on. Patient attended all therapies today, denied pain and ate 100% off all his meals. Denied any questions at this time. VENKAT Ortega med with his father and family this afternoon. See VENKAT Ching note. Reported off to oncoming nurse.
--- NOTE | 2018-04-22 20:30 | NUR ---
Patient sits up in recliner watching TV. Denies pain or needs. HS meds all reviewed and given.
--- NOTE | 2018-04-22 21:00 | NUR ---
Assisted mod 1 assist to stand and wheeled to the bathroom. Max assist with pants down and up. To bed and total assist lower body undressing. Patient removed shirt. Was unable to void.
--- NOTE | 2018-04-23 00:18 | NUR ---
Patient has been resting in bed with eyes closed. Respirations with ease.
--- NOTE | 2018-04-23 02:21 | NUR ---
Patient has been resting with eyes closed.
[2018-04-23 05:11] VITALS: BP 115/82; PULSE 75; TEMP 98.3
--- NOTE | 2018-04-23 06:00 | NUR ---
Patient resting with eyes closed on nurses rounds. Awakened for am meds.
[2018-04-23 11:24] VITALS: BP 121/76; PULSE 81; TEMP 98
--- NOTE | 2018-04-23 11:40 | NUR ---
Patient resting in recliner at this time, call light in reach, alarm on and eating his lunch. Ate all his breakfast this morning. Attended all therapies. Denied pain. Will continue to monitor. This nurse was a one assist this morning with changing his brief. Patient had an incontinent episode in his sweat pants. He did wait for staff to arrive after using the call light. This nurse wiped patient off with bath wipe, changed his brief as well as assist him with putting on his pants and shoes. Patient takes pills whole with water.
--- NOTE | 2018-04-23 16:46 | NUR ---
VENKAT met with patient and patients father to discuss discharge. [facility] doesnt have speech therapy services and [facility] said it is not necessary. Patient is ok with not having [facility] and would like to stick with [facility].
--- NOTE | 2018-04-23 18:00 | NUR ---
Patient in pleasent mood this evening. This nurse transferred him to the toilet, he was a one assist. He pulled his pants down with some incidental assistance. Patient excited about going home today. Discussed discharge with him. Blood sugar was not checked until after patient had eaten his supper. Accucheck was completed and patient was given his scheduled Novolog. Will continue to monitor.
--- NOTE | 2018-04-23 21:30 | NUR ---
HS meds all reviewed and given. Denies pain. Rests back in bed. Declines SCD's.
--- NOTE | 2018-04-23 23:00 | NUR ---
Up to BSC mod 1 assist with frequent verbal cues. Voids and assists some with pullups up. Rests self back in bed.
--- NOTE | 2018-04-24 03:10 | NUR ---
Patient has been resting with eyes closed. Respirations with ease.
[2018-04-24 03:52] VITALS: BP 125/80; PULSE 82; TEMP 97.2
[2018-04-24] MEDS ORDERED: DEPAKOTE 250MG250 MG PO (09:30)
[2018-04-24] MEDS ORDERED: DEPAKOTE500 MG PO (09:32)
[2018-04-24] MEDS ORDERED: SINEMET 25/101 UDTAB PO (09:36)
--- NOTE | 2018-04-24 12:28 | NUR ---
Report from DAVION Adorno. Pt ate breakfast in bed, BRAIN SURGEON assisted pt with dressing and toileting. Pt to chair between toileting, pull ups and braces to BLE, glasses in place. Pt pleasant, alert, cooperative, oriented.
--- NOTE | 2018-04-24 16:31 | NUR ---
SW met with patient and father to present IM and verbally discuss the contents. Patient was agreeable and father signed. Copy Denied original in chart. Patient is dc home today with [facility]/OT/SN and support from family.
--- NOTE | 2018-04-24 17:15 | NUR ---
Patient health summary, discharge instructions, and home med list printed and reviewed with father, Sahil, and pt. Stressed importance of follow up appts, and picking up new prescriptions at pharmacy. Made written corrections to med list and copy to chart. Notified VENKAT Ching when father arrived for her to visit about home health. Belongings gathered by nurse, including home meds from pharmacy, glasses and eugene leg braces in place, pt had own walker. Pt and father denied questions. Pt transported via wheelchair by KRISTI Montano for ride home.
== END 2018-04-24 17:00 | disposition home health service (06) | DRG 948 ==
PROVIDERS: ADMIT Hospitalist
DX: R53.81 Other malaise (principal); G80.1 Spastic diplegic cerebral palsy; Z89.412 Acquired absence of left great toe; Z91.81 History of falling; E11.65 Type 2 diabetes mellitus with hyperglycemia; F31.9 Bipolar disorder, unspecified; F32.9 Major depressive disorder, single episode, unspecified; E03.9 Hypothyroidism, unspecified; I73.9 Peripheral vascular disease, unspecified; N40.0 Benign prostatic hyperplasia without lower urinary tract symptoms; Z79.4 Long term (current) use of insulin
CPT/HCPCS: 99222-AI; 99231-AI; 99232-AI; 99239; J1815

== ENCOUNTER 2018-06-05 03:16 | Inpatient (IN) | payer MEDICARE, BC ==
[~2018-06-05] VITALS: Ht 188 cm; Wt 96.9 kg
[~2018-06-05 03:16] MED LIST changes: +DEPAKOTE 250MG250 MG PO; +FLOMAX 0.40.4 MG/CAP PO; +SINEMET 25/101 UDTAB PO; +SYSTANE 0.4%-0.1 SOL OP
[2018-06-05 03:50] LABS: HEMATOCRIT 45.3 % (42.0-52.0); HEMOGLOBIN 15.4 g/dl (13.5-18.0); MEAN CELL VOLUME 86 fl (80.0-100.0); MEAN CORPUSCULAR HEMOGLOBIN 29 pg (27.0-31.0); MEAN CORPUSCULAR HGB CONC 34 g/dl (33.0-37.0); MEAN PLATELET VOLUME 10.6 fl (7.4-10.4); PLATELET COUNT 176 K/mm3 (130-400); REDCELL DISTRIBUTION WIDTH-CV 12.2 % (11.5-14.5)
[2018-06-05 04:09] LABS: ALBUMIN 3.7 gm/dL (3.5-5.0); BILIRUBIN,TOTAL 0.6 mg/dL (0.0-1.0); C-REACTIVE PROTEIN 1.9 mg/dL (0.0-0.9); CALCIUM 8.9 mg/dL (8.4-10.2); CREATININE, serum 0.72 mg/dL (0.66-1.25); MAGNESIUM 1.3 mg/dL (1.6-2.3); PHOSPHOROUS 3.7 mg/dL (2.5-4.5); POTASSIUM 3.7 mmol/L (3.4-5.0); TOTAL PROTEIN 6.4 gm/dL (6.4-8.2)
[2018-06-05 04:18] LABS: BAND 22 % (0-10); LYMPHOCYTE 6 % (20.0-51.0); NEUTROPHILS 63 % (42.0-75.2)
[2018-06-05 04:19] LABS: PLATELET ESTIMATE NORMAL (NORMAL)
[2018-06-05 05:18] LABS: COLLECTION METHOD CATHETER
[2018-06-05 05:35] LABS: MUCOUS Present /lpf; PH 5 (5-8); SQUAMOUS EPITHELIAL None Seen /hpf; URINE APPEARANCE Hazy; URINE BACTERIA None Seen /hpf; URINE BILIRUBIN Negative (NEGATIVE); URINE BLOOD 3+ (NEGATIVE); URINE COLOR Straw; URINE GLUCOSE 3+ (NEGATIVE); URINE KETONE 1+ (NEGATIVE); URINE LEUKOCYTE ESTERASE 1+ (NEGATIVE); URINE NITRATE Negative (NEGATIVE); URINE PROTEIN(semi-quant) Negative (NEGATIVE); URINE RBC >50 /hpf; URINE UROBILINOGEN Negative (NEGATIVE)
[2018-06-05] MEDS ORDERED: NOVOLOG 100U100 U/M1 SQ (08:03)
[2018-06-05] MEDS ORDERED: DEPAKOTE ER 25250 MG PO (08:07)
[2018-06-05] MEDS ORDERED: DEPAKOTE ER 50500 MG PO (08:08)
[2018-06-05] MEDS ORDERED: SYSTANE 0.4%-0.1 SOL OP (08:10)
[2018-06-05] MEDS ORDERED: COGENTIN 1MG1 MG/TAB PO (08:13)
[2018-06-05] MEDS ORDERED: TRUSOPT OCUMETE10 ML OU (08:14)
[2018-06-05 09:17] VITALS: BP 148/72; PULSE 123; TEMP 100
--- NOTE | 2018-06-05 11:17 | NUR ---
NOTIFED ABOUT NO MEDICATIONS ORDERS & PATIENT FATHER CONCERNS REGAURDING DIET. REPORTS HE WILL WORK ON IT
[2018-06-05 12:21] VITALS: BP 120/71; PULSE 117; TEMP 99.6
[2018-06-05 15:18] VITALS: BP 119/85; PULSE 110; TEMP 98.3
--- NOTE | 2018-06-05 15:58 | NUR ---
VENKAT met with patient and his father to discuss discharge planning. Patient lives with his father who is his current caregiver. Over the past few weeks he has been progressivly getting weaker and has had three falls the last few days. The father worries about being able to care for him if he is unable to get stronger while here. SW talked with them about SNF vs home with private duty home health as well as [facility]. Patient has been in [facility] recently but struggles with motivation when he goes home to continue working on his strength. Patients father doesn't want to put him in LTC yet but private duty help was also discussed when dc from [facility]. Patient does have [facility] but they only come a few times a week and the therapists have been missing visits due to being sick. Patients father would like to talk to Dr connell and see how patient progresses before making a decision. [facility]. Patients PCP is Dr connell and he obtains his medications from [facility]. He has a walker and wheelchair and had a home assessment while in [facility]. VENKAT will follow up this weekend.
--- NOTE | 2018-06-05 18:18 | NUR ---
Patient resting in bed. Student nurse working with patient this afternoon. Patient receiving insulin per orders. Elevated blood sugars at this time. Dinner ordered. Medications did get administered a little behind in time today. Urology consult was called to Dr. Bailey, he will see patient when he finishes in OR. Patient has been voiding frequently, small amounts. New IV was started by stundent nurse. Patient pulled out his prior IV this afternoon. Report to be given to night nurse
--- NOTE | 2018-06-05 18:52 | NUR ---
Patient alert and oriented. Family member visited during the day. Patient resting in bed. Call light within reach and rails up. Reported off to Baltazar RICARDO, C
--- NOTE | 2018-06-05 19:01 | NUR ---
MADE AWARE OF ELEVATED SUGARS, NO NEW ORDERS AT THIS TIME
[2018-06-05 20:00] VITALS: BP 116/64; PULSE 109; TEMP 98.6
--- NOTE | 2018-06-05 22:00 | NUR ---
Patient incontinent of urine requiring linen change. Is alert and oriented, cooperative with staff. SL to right forearm without redness or swelling.
--- NOTE | 2018-06-05 22:00 | NUR ---
Patient awake, in bed watching TV. Is alert and oriented x3. Takes HS meds without problem. Insulin given in his stomach per his request. Lungs are clear, abdomen soft. Has been incontinent of urine this shift, urgency and frequency reported, wearing a depends at this time. No edema noted bilateral lower legs. Ready for bed.
[2018-06-06 00:12] VITALS: BP 137/74; PULSE 111; TEMP 99.6
[2018-06-06 03:57] VITALS: BP 121/70; PULSE 108; TEMP 98.2
--- NOTE | 2018-06-06 06:00 | NUR ---
Patient incontinent of urine, bed linens changed, diana care given. Patient reports urgency and inability to control his bladder.
[2018-06-06 07:32] VITALS: BP 122/59; PULSE 101; TEMP 97
--- NOTE | 2018-06-06 08:00 | NUR ---
Patient in bed resting. Alert and oriented x3. Shift assesment complete. Incontinent of urine, pericare provided. Denies pain or further needs at this time.
[2018-06-06 11:38] VITALS: BP 108/62; PULSE 95; TEMP 98.4
[2018-06-06 15:41] VITALS: BP 112/64; PULSE 101; TEMP 99.8
--- NOTE | 2018-06-06 17:52 | NUR ---
Patient has been up in chair throughout the day. Father in room. Denies pain at this time. Denies further needs at this time. Will report off to welder 2nd shift.
[2018-06-06 19:59] VITALS: BP 101/71; PULSE 101; TEMP 98.2
--- NOTE | 2018-06-06 20:00 | NUR ---
Patient sitting up in chair at bedside. Has bilateral leg braces on. Is alert, watching TV. IV SL to right forearm without redness or swelling. Call light within reach.
--- NOTE | 2018-06-06 21:33 | NUR ---
PATIENT INCONTINENT OF URINE, DEPENDS CHANGED. PATIENT REMAINS UP IN CHAIR.
--- NOTE | 2018-06-06 23:20 | NUR ---
Patient MAX 2 assist with gait belt to bed. Patient very weak, unsteady and was holding onto the chair preventing efficient transfer. Once in bed, patient moves self up with minimal assist. Bilateral lower leg swelling noted after leg braces removed.
[2018-06-07] VITALS: BP 133/83; PULSE 83; TEMP 98
[2018-06-07 04:00] VITALS: BP 130/84; PULSE 70; TEMP 97.7
--- NOTE | 2018-06-07 04:50 | NUR ---
Patient ineffective with urinal usage, total bed change done at this time.
[2018-06-07 07:59] VITALS: BP 117/72; PULSE 84; TEMP 97.6
[2018-06-07 11:24] VITALS: BP 116/70; PULSE 90; TEMP 98.2
[2018-06-07 16:05] VITALS: BP 109/70; PULSE 83; TEMP 98.7
--- NOTE | 2018-06-07 18:30 | NUR ---
Alert. No complaints. Transferred much better with physical therapy today. Requested to exercise more in afternoon. Ambulated slowly with walker and two staff assist to hallway and returned to chair. Dad in room.
[2018-06-07 19:23] VITALS: BP 119/75; PULSE 94; TEMP 98
--- NOTE | 2018-06-07 23:00 | NUR ---
Patient ready for bed. Has been up in chair at bedside since beginning of this shift at 7p. Transfers much better with gait belt and 2 assist, than previous night. Has been using the urinal and minimally incontinent. SL to right forearm without redness or swelling.
[2018-06-08] VITALS (7 sets, daily range): BP systolic 107–136; BP diastolic 65–78; PULSE 72–85; TEMP 97.2–98.2
--- NOTE | 2018-06-08 06:00 | NUR ---
No concerns voiced. IV antibiotic infusing to right forearm without redness or swelling.
--- NOTE | 2018-06-08 11:00 | NUR ---
Patient alert and oriented, answers questions appropriately. See assessment. No c/o urinary frequency, hesitancy or burning. Urinary output adequate. States wishes to return home. Dr Moon here to see patient.
--- NOTE | 2018-06-08 15:38 | NUR ---
SW met with the patient to review discharge plan and to discuss therapies recommendation of IPR. The patient requested that SW speak to his father. SW attempted to contact the patient's father, Sahil. SW left a voicemail and will try to contact him again.
--- NOTE | 2018-06-08 16:44 | NUR ---
VENKAT met with the patient's father, Sahil, and reviewed physical therapies recommendation of considering IPR. The patient's father reports that if therapy and Dr. Moon are recommendating post-acute rehab for the patient, then he is agreeable. VENKAT presented the patient choice form to the patient's father and discussed options. Sahil preferred 1) IPR 2) [facility]. The patient choice form was signed by the patient's father and he was provided a copy. An IPR consult was ordered. Dora, IPR Director, reports that they have no bed available at this time. VENKAT informed the patient's father. VENKAT also contacted and faxed a referral to [facility]. VENKAT awaiting their screening.
--- NOTE | 2018-06-08 22:00 | NUR ---
ASSUMED CARE FOR CABLE TOWER OPERATOR. SITTING UP IN CHAIR WATCHING TV. ASSESSMENT COMPLETE. REQUESTING TO LAY DOWN FOR THE NIGHT. ASSISTED TO BED WITH GAIT BELT/PIVOT. SHOES AND BRACES REMOVED. DENIES PAIN OR DISCOMFORT. ENCOURAGED TO CALL FOR QUESTIONS OR CONCERNS. VERBALIZES UNDERSTANDING. CALL LIGHT WITHIN REACH. BED IN LOW POSITION-WHEELS LOCKED-BED ALARM ON DUE TO HISTORY OF FALLS. HS GLUCOSE WAS 162-NO SLIDING SCALE NEEDED. WILL CONTINUE TO MONITOR.
[2018-06-09 04:33] VITALS: BP 126/88; PULSE 73; TEMP 98.1
--- NOTE | 2018-06-09 05:28 | NUR ---
HAS SLEPT THROUGH THIS SHIFT. NO C/O PAIN OR DISCOMFORT. VS STABLE. BED IN LOW POSITION. WHEELS LOCKED. CALL LIGHT WITHIN REACH. WILL MONITOR.
[2018-06-09 07:38] VITALS: BP 126/79; PULSE 80; TEMP 97.6
--- NOTE | 2018-06-09 08:00 | NUR ---
Dr. Moon in to see patient.
--- NOTE | 2018-06-09 08:45 | NUR ---
Patient in bed resting. Alert and oriented x 3. Answers questions appropriately. Shift assessment complete. Denies pain or further needs at this time.
--- NOTE | 2018-06-09 09:08 | NUR ---
Vivian, at [facility], reports that they can accept the patient for a skilled stay. SW to inform the patient and patient's father and continue to follow.
--- NOTE | 2018-06-09 10:57 | NUR ---
Initial: Hazardous Substances Engineer offered encouragement and support to Victorino's Dad who is Caregiver to his son.
--- NOTE | 2018-06-09 11:29 | NUR ---
First visit from the hitch technician. No needs right now.
[2018-06-09 11:56] VITALS: BP 123/73; PULSE 86; TEMP 97.8
[2018-06-09 15:25] VITALS: BP 126/71; PULSE 77; TEMP 98.8
--- NOTE | 2018-06-09 17:49 | NUR ---
Patient sittin up in chair, waiting for dinner. Denies pain or further needs at this time. Will report off to warehouse shift supervisor.
--- NOTE | 2018-06-09 19:38 | NUR ---
Shift assessment complete at this time. Plan of care reviewed at bedside with patient. Additional time taken to address any other needs or concerns. Denies pain at this time. Will continue to monitor.
[2018-06-09 19:57] VITALS: BP 115/80; PULSE 76; TEMP 98.6
--- NOTE | 2018-06-10 | NUR ---
Pt sleeping comfortably in bed. Denies pain or any other discomfort. Vitals stable at this time. Will continue to monitor.
[2018-06-10 00:15] VITALS: BP 127/74; PULSE 73; TEMP 97.5
[2018-06-10 03:54] VITALS: BP 122/82; PULSE 73; TEMP 97.3
--- NOTE | 2018-06-10 04:00 | NUR ---
Pt sleeping comfortably in bed. Denies pain or any other discomfort. Vitals stable at this time. Will continue to monitor.
--- NOTE | 2018-06-10 07:01 | NUR ---
Bedside report given to DAVION Luther.
--- NOTE | 2018-06-10 07:12 | NUR ---
Report received from DAVION Lamb. Patient resting in bed. Denies needs at this time.
[2018-06-10 07:36] VITALS: BP 114/80; PULSE 74; TEMP 97.5
--- NOTE | 2018-06-10 08:43 | NUR ---
Patient sitting up eating breakfast. Assessment completed. Medications administered with no difficulty. Patient denies pain. Pleasant and compliant with cares. Denies needs.
[2018-06-10] MEDS ORDERED: PROSCAR 5MG5 MG PO (11:53)
[2018-06-10 12:10] VITALS: BP 118/76; PULSE 74; TEMP 97.5
[2018-06-10 12:14] VITALS: BP 118/76; PULSE 74; TEMP 97.5
[2018-06-10] MEDS ORDERED: CIPRO 250MG TA250 MG PO (12:15)
--- NOTE | 2018-06-10 12:32 | NUR ---
VENKAT informed the patient and patient's father of [facility] being able to accept. The patient and his father are agreeable to transfer to [facility] upon discharge. The patient is to discharge today, 06/10, to [facility] for a skilled stay. Transportation was set for around [id number], via [facility]. VENKAT informed the patient, patient's nurse, and the patient's father via phone. They were all in agreeance. VENKAT also presented and explained the IM form to the patient. The patient verbalized understanding, signed, and he was provided a copy. No additional needs at this time.
--- NOTE | 2018-06-10 13:30 | NUR ---
Patient assisted out with [employer] personnel at 1321. All belongings and paperwork sent with patient.
--- NOTE | 2018-06-10 13:36 | NUR ---
Report called to DAVION Cr at [facility] at [phone]. All questions and concerns answered. Call back number left in case any other questions she had.
== END 2018-06-10 13:21 | DRG 690 ==
LOC: COL.ER 03:16 → SURG 06:16
PROVIDERS: Emergency Medicine; ADMIT Emergency Medicine
DX: N39.0 Urinary tract infection, site not specified (principal); G80.1 Spastic diplegic cerebral palsy; F32.9 Major depressive disorder, single episode, unspecified; E11.9 Type 2 diabetes mellitus without complications; Z91.81 History of falling; E03.9 Hypothyroidism, unspecified; Z88.1 Allergy status to other antibiotic agents; Z88.0 Allergy status to penicillin; Z88.2 Allergy status to sulfonamides; Z91.09 Other allergy status, other than to drugs and biological substances
CPT/HCPCS: A4216; J0696; J1815; J3475; J7030

== ENCOUNTER 2018-06-17 15:10 | Inpatient (IN) | payer MEDICARE, BC ==
[~2018-06-17] VITALS: Ht 188 cm; Wt 95.3 kg
[2018-06-17] VITALS (226 sets, daily range): BP systolic 117–145; BP diastolic 79–88; PULSE 104–117; TEMP 98–98.2; O2SAT 94–99
[~2018-06-17 15:10] MED LIST changes: +CIPRO 250MG TA250 MG PO; +DEPAKOTE ER 25250 MG PO; +NOVOLOG 100U100 U/M1 SQ; +PROSCAR 5MG5 MG PO; +TRUSOPT OCUMETE10 ML OU
[2018-06-17 15:55] LABS: HEMATOCRIT 51.7 % (42.0-52.0); HEMOGLOBIN 16.1 g/dl (13.5-18.0); MEAN CELL VOLUME 93 fl (80.0-100.0); MEAN CORPUSCULAR HEMOGLOBIN 29 pg (27.0-31.0); MEAN CORPUSCULAR HGB CONC 31 g/dl (33.0-37.0); MEAN PLATELET VOLUME 10.2 fl (7.4-10.4); PLATELET COUNT 542 K/mm3 (130-400); RED BLOOD COUNT 5.54 M/mm3 (4.20-5.60); REDCELL DISTRIBUTION WIDTH-CV 12.6 % (11.5-14.5)
[2018-06-17 16:00] LABS: ALANINE AMINOTRANSFERASE < 6 U/L (21-72); ALBUMIN 4.4 gm/dL (3.5-5.0); ALKALINE PHOSPHATASE 96 U/L (50-136); ANION GAP 38 mmol/L (7-16); AST,SGOT 27 U/L (15-37); BILIRUBIN,TOTAL 0.4 mg/dL (0.0-1.0); BLOOD UREA NITROGEN 37 mg/dL (9-20); CALCIUM 9.1 mg/dL (8.4-10.2); CHLORIDE 93 mmol/L (98-107); CREATININE, serum 2.26 (0.66-1.25); LIPASE 85 U/L (23-300); POTASSIUM 5.2 mmol/L (3.4-5.0); SODIUM 136 mmol/L (137-145); TOTAL PROTEIN 7.6 gm/dL (6.4-8.2)
[2018-06-17 16:05] LABS: ARTERIAL BLD GAS O2 SATURATION 96.8 % (92-100); ARTERIAL BLD GAS TCO2 CT 4.9; ARTERIAL BLOOD GAS BASE EXCESS -23.2 (-2-2); ARTERIAL BLOOD GAS HCO3 4.5 meq/L (22-26); ARTERIAL BLOOD GAS PO2 103.2 mmHg (80-100)
[2018-06-17 16:06] LABS: ARTERIAL BLOOD GAS PCO2 15.2 mmHg (35-45); ARTERIAL BLOOD GAS pH 7.09 (7.35-7.45)
[2018-06-17 16:08] LABS: CARBON DIOXIDE 5 mmol/L (22-30); GLUCOSE 793 mg/dL (74-106)
[2018-06-17 16:09] LABS: ACETONE,SERUM MODERATE
[2018-06-17 16:32] LABS: BAND 11 % (0-10); LYMPHOCYTE 1 % (20.0-51.0); METAMYELOCYTE 1 % (0-0); NEUTROPHILS 81 % (42.0-75.2)
[2018-06-17 16:35] LABS: MICROCYTOSIS 1+; PLATELET ESTIMATE INCREASED (NORMAL)
--- NOTE | 2018-06-17 17:30 | NUR ---
Admitted to ICU 1 via cot from ED with RN and dad at side. Transferred to bed and monitors applied, orient patient and family to unit. Call light at side and shown how to use. Patient A/O and answers appropriately. Denies pain, only complaint at this time is "I'm afraid of the catheter". Talked with patient at length about catheter insertion, emotional support offered.
[2018-06-17 18:00] LABS: HEMATOCRIT 47.7 % (42.0-52.0); HEMOGLOBIN 15.5 g/dl (13.5-18.0); MEAN CELL VOLUME 90 fl (80.0-100.0); MEAN CORPUSCULAR HEMOGLOBIN 29 pg (27.0-31.0); MEAN CORPUSCULAR HGB CONC 33 g/dl (33.0-37.0); MEAN PLATELET VOLUME 9.9 fl (7.4-10.4); PLATELET COUNT 447 K/mm3 (130-400); RED BLOOD COUNT 5.28 M/mm3 (4.20-5.60); REDCELL DISTRIBUTION WIDTH-CV 12.6 % (11.5-14.5)
--- NOTE | 2018-06-17 18:15 | NUR ---
Dr. Santos notified of blood sugar decrease to 574, orders recieved and Insulin drip adjusted at this time.
[2018-06-17 18:18] LABS: ANISOCYTOSIS 1+; BAND 7 % (0-10); LYMPHOCYTE 6 % (20.0-51.0); NEUTROPHILS 84 % (42.0-75.2); PLATELET ESTIMATE INCREASED (NORMAL)
--- NOTE | 2018-06-17 19:10 | NUR ---
Bedside report given to Ritika RICARDO. Insulin drip verified at this time.
--- NOTE | 2018-06-17 19:15 | NUR ---
Bedside report received from DAVION Metz. Drips and lines reviewed. Transfer of care at this time.
[2018-06-17 19:57] LABS: COLLECTION METHOD CLEAN CATCH
[2018-06-17 19:58] LABS: CALCIUM 8.4 mg/dL (8.4-10.2); CREATININE, serum 1.59 (0.66-1.25); POTASSIUM 4.7 mmol/L (3.4-5.0)
--- NOTE | 2018-06-17 20:00 | NUR ---
Patient resting in bed at this time. Assessment complete. Patient has no complaints of pain or discomfort. He is alert and oriented. No current needs. Assessment reveals tachycardia with normal heart sound S1 and S2. Some mild edema +1 in the lower extremities. Patient's blood sugar is declining steadily. Will continue to monitor. Call light within reach.
[2018-06-17 20:10] LABS: AMORPHOUS CRYSTAL Present /uL; MUCOUS Present /lpf; PH 5 (5-8); SQUAMOUS EPITHELIAL 0-2 /hpf; URINE APPEARANCE Hazy; URINE BACTERIA None Seen /hpf; URINE BILIRUBIN Negative (NEGATIVE); URINE BLOOD 1+ (NEGATIVE); URINE COLOR Yellow; URINE GLUCOSE 3+ (NEGATIVE); URINE KETONE 2+ (NEGATIVE); URINE LEUKOCYTE ESTERASE Negative (NEGATIVE); URINE NITRATE Negative (NEGATIVE); URINE PROTEIN(semi-quant) Negative (NEGATIVE); URINE RBC 0-2 /hpf; URINE UROBILINOGEN Negative (NEGATIVE)
[2018-06-17 21:38] LABS: CALCIUM 8.4 mg/dL (8.4-10.2); CREATININE, serum 1.4 (0.66-1.25); POTASSIUM 4.5 mmol/L (3.4-5.0)
[2018-06-17 23:20] LABS: CALCIUM 7.8 mg/dL (8.4-10.2); CREATININE, serum 1.22 (0.66-1.25); POTASSIUM 4.3 mmol/L (3.4-5.0)
[2018-06-18] VITALS (432 sets, daily range): BP systolic 96–148; BP diastolic 64–95; PULSE 77–105; TEMP 97.3–99.2; O2SAT 83–99
--- NOTE | 2018-06-18 | NUR ---
Patient asleep at this time but awakens easily to name/noise in the room. Assessment complete and no changes from previous. No complaints of pain. Vitals remain stable. No further needs at this time. Will continue to monitor. Call light within reach.
[2018-06-18 01:33] LABS: CALCIUM 7.8 mg/dL (8.4-10.2); CREATININE, serum 1.1 (0.66-1.25)
[2018-06-18 03:36] LABS: CALCIUM 7.7 mg/dL (8.4-10.2); CREATININE, serum 1.07 (0.66-1.25)
--- NOTE | 2018-06-18 04:00 | NUR ---
Patient asleep at this time, but awakens to name. Assessment complete. No changes from previous. Vitals remain stable. No current needs at this time. Will continue to monitor. Call light within reach.
[2018-06-18 05:22] LABS: MEAN CELL VOLUME 86 fl (80.0-100.0); MEAN CORPUSCULAR HGB CONC 35 g/dl (33.0-37.0); MEAN PLATELET VOLUME 9.9 fl (7.4-10.4); RED BLOOD COUNT 4.28 M/mm3 (4.20-5.60); REDCELL DISTRIBUTION WIDTH-CV 12.8 % (11.5-14.5)
[2018-06-18 05:24] LABS: HEMATOCRIT 36.8 % (42.0-52.0); HEMOGLOBIN 12.7 g/dl (13.5-18.0); MEAN CORPUSCULAR HEMOGLOBIN 30 pg (27.0-31.0); PLATELET COUNT 319 K/mm3 (130-400)
[2018-06-18 05:34] LABS: CALCIUM 7.7 mg/dL (8.4-10.2); CREATININE, serum 1.01 (0.66-1.25); POTASSIUM 3.8 mmol/L (3.4-5.0)
--- NOTE | 2018-06-18 07:20 | NUR ---
Bedside report received from DAVION Yost. Care of patient assumed at this time.
--- NOTE | 2018-06-18 07:20 | NUR ---
Bedside report given to DAVION Saldana. All lines and medications reviewed. Transfer of care at this time.
[2018-06-18 07:22] LABS: CALCIUM 7.8 mg/dL (8.4-10.2); CREATININE, serum 1.02 (0.66-1.25); POTASSIUM 3.7 mmol/L (3.4-5.0)
[2018-06-18 07:43] LABS: BAND 14 % (0-10); LYMPHOCYTE 8 % (20.0-51.0); NEUTROPHILS 75 % (42.0-75.2); PLATELET ESTIMATE NORMAL (NORMAL)
[2018-06-18 08:07] LABS: PATHOLOGY DIFF REVIEW OK
--- NOTE | 2018-06-18 08:45 | NUR ---
Patient assessment complete. Patient resting in bed. Denies pain or shortness of breath. No concerns at this time. Will continue to monitor.
[2018-06-18 09:19] LABS: CALCIUM 7.7 mg/dL (8.4-10.2); CREATININE, serum 0.98 (0.66-1.25); POTASSIUM 3.6 mmol/L (3.4-5.0)
--- NOTE | 2018-06-18 11:19 | NUR ---
Report given to DAVION Rosen.
--- NOTE | 2018-06-18 12:00 | NUR ---
Patient transported upstairs in personal wheelchair. Thalia, vice president of nursing, accompanied this nurse, along with patient's father. All patient belongings transported with patient. Patient assisted into bed with gait belt and 3 person assist. Medical floor charge called DAVION Rosen, to notify her of patient arrival.
--- NOTE | 2018-06-18 12:15 | NUR ---
Patient arrived to floor from ICU at this time VIA personal wheelchair. 2:1 assist required for transfer. Patient is observed resting in bed with arms behind head. IV is to left AC with fluids at 150/hr. Denies pain at this time. Lungs are clear, heart is regular, bowel sounds are active to all quadrants. Pedal and radial pulses are readily palpable. Has fermin to dependent drainage with clear yellow urine noted. Does have a bruise to the right ricci. Mepilex dressing noted to coccyx. Patient is alert and oriented. Left great toe is noted to be amputated. Patient was reported to have eaten shortly before coming to floor. Denies wanting any food. Does request a beverage and would like to have diet pepsi. No other needs identified. Call light is within reach, father is at bedside.
--- NOTE | 2018-06-18 13:15 | NUR ---
VENKAT and SW student met with patient and his father to discuss discharge planning. Patient is currently staying at [facility] for long term however they did not save their bed and are not sure they would like him to return there. They would also like a referral sent to [facility]. Choice form for long term completed for [facility] and [facility]. Referrals made to both. Patients PCP is Dr Moon and he obtains his medications from [facility]. Patient lives with his father when he is not in SNF who is his primary caregiver. SW will continue to follow.
--- NOTE | 2018-06-18 16:25 | NUR ---
[facility] unable to accept patient for half-way.
[2018-06-18 16:50] LABS: CALCIUM 7.9 mg/dL (8.4-10.2); CREATININE, serum 0.91 (0.66-1.25); POTASSIUM 3.7 mmol/L (3.4-5.0)
--- NOTE | 2018-06-18 18:37 | NUR ---
Patient finished evening meal, has no needs at this time. States he has a little pain in his left foot but is tolerable. Patient is noted to have some difficulty moving limbs but is very capable of grasping items and has good dexterity. No further needs identified. Call light is within reach.
--- NOTE | 2018-06-18 23:21 | NUR ---
Completed medication administration and assessment; PT tolerated call cares well; PT denied pain at time of assessment; Minimal bilateral foot drop, fermin in place draining to dependent collection bag, 1/2 NS with 20mEq K running at 150ml/hr to LAC; PT A&Ox3, well spoken, x2 asst with personal W/C, BS active x4, intermittent reeducation on acute intervention for hospitalized treatment; No further assessed or reported concerns at time of exit; PT assisted to comfortable position in bed with call light within reach; Will continue to monitor. CDA
--- NOTE | 2018-06-19 03:57 | NUR ---
PT resting well in bed; Rahman draining clear yellow urine to dependent collections bag; 1/2 NS with 20 mEq running to LAC at 150ml/hr; FSBS continue at [facility] with High SS adjustment; No further assessed concerns at time of exit; PT maintained comfortable position in bed with call light within reach; Will continue to monitor. CDA
[2018-06-19 04:52] VITALS: BP 140/88; PULSE 75; TEMP 97.9
--- NOTE | 2018-06-19 06:56 | NUR ---
Report given to DAVION Rosen; No significant changes or events at shift change; dressing in place on coccyx, LAC 1/2 NS with 20 mEq running at 150ml/hr, and fermin removed. CDA
[2018-06-19 07:09] LABS: BASO % 0.2 % (0.0-2.0); EOS % 0.1 % (0-4.0); GRAN # 7.5 (1.4-6.5); HEMATOCRIT 38.3 % (42.0-52.0); LYMPH % 19.1 % (20.0-51.0); MEAN CELL VOLUME 87 fl (80.0-100.0); MEAN CORPUSCULAR HEMOGLOBIN 29 pg (27.0-31.0); MEAN CORPUSCULAR HGB CONC 34 g/dl (33.0-37.0); MEAN PLATELET VOLUME 10.6 fl (7.4-10.4); MONO # 0.7 (0.1-0.6); PLATELET COUNT 236 K/mm3 (130-400); RED BLOOD COUNT 4.43 M/mm3 (4.20-5.60); REDCELL DISTRIBUTION WIDTH-CV 13.3 % (11.5-14.5)
[2018-06-19 07:10] LABS: CALCIUM 7.9 mg/dL (8.4-10.2); CREATININE, serum 0.8 (0.66-1.25)
[2018-06-19 13:11] VITALS: BP 130/82; PULSE 80; TEMP 98.4
--- NOTE | 2018-06-19 14:52 | NUR ---
VENKAT contacted Glen from [facility] to inquire if patient's father has contacted her about patient returning to [facility]. Glen reports she has not spoken with his father but she will contact him today.
--- NOTE | 2018-06-19 15:59 | NUR ---
VENKAT spoke with patient's father about patient returning to [facility]. He reports he is okay with patient returning there. VENKAT will inform [facility] about this decision.
[2018-06-19 16:49] VITALS: BP 137/87; PULSE 75; TEMP 98.2
--- NOTE | 2018-06-19 18:12 | NUR ---
Patient discharged at 1747. Discharge information given and questions asked with appropriate readback. Understands to get medications and glucose monitor tonight. Did ask to have accu check monitored once more so he can compare to his new meter. Has no pain. Personal items taken with patient. Patient chose to ambulate to private vehicle.
[2018-06-19 20:42] VITALS: BP 135/83; PULSE 90; TEMP 98.3
[2018-06-20 00:02] VITALS: BP 141/82; PULSE 73; TEMP 97.4
--- NOTE | 2018-06-20 00:11 | NUR ---
Completed assessment and medication administration; PT tolerated all cares well; PT transferred x2 assist with gait belt and walker to bedside commode; PT continues to use urinal and protective briefs; PT A&Ox4, BS active x4, LCTAB with bilateral diminished bases; Meplex dressing in place for protection ox coccyx; No further assessed or verbalized concerns at time of exit; Completed bed change done prior to exit and positioning; PT assisted to comfortable position in bed with call light and personal item within reach; Will continue to monitor. CDA
--- NOTE | 2018-06-20 01:03 | NUR ---
Per MULUGETA Zuniga able to D/C LAC INT IV without replacement per pending D/C order tomorrow; No replacement IV will be placed at this time. CDA
--- NOTE | 2018-06-20 01:08 | NUR ---
IV removed with full catheter intact; minimal bleeding to site. Pressure dressing in place to LAC. CDA
--- NOTE | 2018-06-20 01:56 | NUR ---
PT resting well in bed with minimal interruptions; LAC IV D/C d/t redness, irritation, and leakage; No further needs assessed or verbalized at times of rounds; PT remained in comfortable position in bed with call light within reach; Pt continues to utilize incontinent protective briefs; Will continues to monitor. CDA
[2018-06-20 04:24] VITALS: BP 157/85; PULSE 68; TEMP 98.1
[2018-06-20 06:27] LABS: BASO % 0.3 % (0.0-2.0); EOS # 0.1 (0.0-0.7); EOS % 1.2 % (0-4.0); GRAN # 3.8 (1.4-6.5); GRAN % 57.7 % (42.2-75.2); HEMATOCRIT 38.4 % (42.0-52.0); HEMOGLOBIN 12.7 g/dl (13.5-18.0); LYMPH % 30.8 % (20.0-51.0); MEAN CELL VOLUME 87 fl (80.0-100.0); MEAN CORPUSCULAR HEMOGLOBIN 29 pg (27.0-31.0); MEAN CORPUSCULAR HGB CONC 33 g/dl (33.0-37.0); MEAN PLATELET VOLUME 10.2 fl (7.4-10.4); MONO # 0.6 (0.1-0.6); MONO % 9.2 % (1.7-9.3); PLATELET COUNT 181 K/mm3 (130-400); RED BLOOD COUNT 4.41 M/mm3 (4.20-5.60); REDCELL DISTRIBUTION WIDTH-CV 13.2 % (11.5-14.5)
[2018-06-20 06:33] LABS: CREATININE, serum 0.83 (0.66-1.25); POTASSIUM 3.6 mmol/L (3.4-5.0)
--- NOTE | 2018-06-20 07:06 | NUR ---
Report given to DAVION Tripp; No significant changes or concerns during change of shift. CDA
[2018-06-20 07:48] VITALS: BP 133/86; PULSE 76; TEMP 98.1
--- NOTE | 2018-06-20 10:20 | NUR ---
Assessment complete.patient awake,alert and oriented x3.denies pain or discomfort at this time.LSCTA.patient's blood glucose stable.all meds given.bed alarm on.hygiene provided and linens changed.patient has no IV access.patient denies any concerns at this time.call light in reach
[2018-06-20 11:01] VITALS: BP 133/86; PULSE 76; TEMP 98.1
--- NOTE | 2018-06-20 11:15 | NUR ---
VENKAT contacted [facility] and the patient will be returning there today, 06/20. [facility] will transport the patient at approximately 1400. VENKAT faxed discharge orders to [facility]. VENKAT presented the IM form to the patient; the patient understood and signed the form. A copy was provided for the patient and the original was placed in the chart. There are no additional needs at this time.
--- NOTE | 2018-06-20 14:47 | NUR ---
PATIENT DISCHARGE TO [facility] AT THIS TIME.ALL PAPERWORK GIVEN TO MINING AND QUARRYING MACHINERY REPAIRER.REPORT CALLED TO NURSE AT [facility].ALL INSTRUCTIONS GIVEN.NO CONCERNS VOICED.STAFF ESCORTED PATIENT OUT.
== END 2018-06-20 14:50 | DRG 638 ==
LOC: COL.ER 15:10 → ICU 16:27 → MEDICAL 06-18 12:56
PROVIDERS: Emergency Medicine; Nurse Practitioner Family; Physician Assistant; ADMIT Internal Medicine
DX: E11.10 Type 2 diabetes mellitus with ketoacidosis without coma (principal); N17.9 Acute kidney failure, unspecified; G80.1 Spastic diplegic cerebral palsy; E86.0 Dehydration; F43.10 Post-traumatic stress disorder, unspecified; Z89.412 Acquired absence of left great toe; F31.9 Bipolar disorder, unspecified; Z79.4 Long term (current) use of insulin; L89.159 Pressure ulcer of sacral region, unspecified stage
CPT/HCPCS: 99231-AI; 99233-AI; 99239; A4216; J0696; J1644; J1815; J2405; J3480; J7030

== ENCOUNTER → 2018-07-02 | Outpatient (REF) ==
[2018-07-02 16:42] LABS: COLLECTION METHOD CLEAN CATCH
[2018-07-02 16:58] LABS: AMORPHOUS CRYSTAL Present /uL; MUCOUS Present /lpf; PH 6 (5-8); SQUAMOUS EPITHELIAL None Seen /hpf; URINE APPEARANCE Hazy; URINE BACTERIA None Seen /hpf; URINE BILIRUBIN Negative (NEGATIVE); URINE BLOOD Negative (NEGATIVE); URINE COLOR Yellow; URINE GLUCOSE Negative (NEGATIVE); URINE KETONE Trace (NEGATIVE); URINE LEUKOCYTE ESTERASE Trace (NEGATIVE); URINE NITRATE Positive (NEGATIVE); URINE PROTEIN(semi-quant) Negative (NEGATIVE); URINE UROBILINOGEN Negative (NEGATIVE)
== END ==
LOC: ZCOL.LAB 16:41
PROVIDERS: Emergency Medicine
DX: N39.0 Urinary tract infection, site not specified (principal)

== ENCOUNTER → 2018-07-15 | Outpatient (CLI) | payer MEDICARE, BC ==
[2018-07-15 17:44] LABS: COLLECTION METHOD CLEAN CATCH
[2018-07-15 17:56] LABS: MUCOUS Present /lpf; PH 5 (5-8); SQUAMOUS EPITHELIAL None Seen /hpf; URINE APPEARANCE Clear; URINE BACTERIA None Seen /hpf; URINE BILIRUBIN Negative (NEGATIVE); URINE BLOOD Negative (NEGATIVE); URINE COLOR Yellow; URINE GLUCOSE 3+ (NEGATIVE); URINE KETONE 1+ (NEGATIVE); URINE LEUKOCYTE ESTERASE Negative (NEGATIVE); URINE NITRATE Negative (NEGATIVE); URINE PROTEIN(semi-quant) Negative (NEGATIVE); URINE RBC 0-2 /hpf; URINE UROBILINOGEN Negative (NEGATIVE)
[2018-07-15 18:51] LABS: CALCIUM 9.6 mg/dL (8.4-10.2); CREATININE, serum 0.74 (0.66-1.25)
== END ==
LOC: ZCOL.LAB 16:41
PROVIDERS: Emergency Medicine
DX: R79.89 Other specified abnormal findings of blood chemistry (principal); R74.0 Nonspecific elevation of levels of transaminase and lactic acid dehydrogenase [LDH]

== ENCOUNTER → 2018-07-23 | Outpatient (REF) | LOC: ZCOL.LAB 15:52 | DX: Z01.89 Encounter for other specified special examinations (principal) ==

== ENCOUNTER → 2018-09-03 | Outpatient (REF) ==
[2018-09-03 06:53] LABS: CHOLESTEROL RISK RATIO 5.7
[2018-09-03 07:24] LABS: THYROID STIMULATING HORMONE 4.29 uIU/mL (0.465-4.680)
[2018-09-03 07:44] LABS: VALPROIC ACID (DEPAKENE) 39.4 ug/mL (50.0-100.0)
== END ==
LOC: ZCOL.LAB 06:11
PROVIDERS: Emergency Medicine
DX: Z01.89 Encounter for other specified special examinations (principal)

== ENCOUNTER → 2018-10-06 | Outpatient (CLI) | payer MEDICARE, BC | LOC: ZCOL.LAB 14:46 | DX: N39.0 Urinary tract infection, site not specified (principal) ==

== ENCOUNTER → 2018-10-07 | Outpatient (CLI) | payer MEDICARE, BC ==
[2018-10-07 13:31] LABS: COLLECTION METHOD CLEAN CATCH
[2018-10-07 14:01] LABS: MUCOUS Present /lpf; PH 5 (5-8); SQUAMOUS EPITHELIAL None Seen /hpf; URINE APPEARANCE Clear; URINE BACTERIA None Seen /hpf; URINE BILIRUBIN Negative (NEGATIVE); URINE BLOOD Negative (NEGATIVE); URINE COLOR Yellow; URINE GLUCOSE 3+ (NEGATIVE); URINE KETONE Trace (NEGATIVE); URINE LEUKOCYTE ESTERASE Negative (NEGATIVE); URINE NITRATE Negative (NEGATIVE); URINE PROTEIN(semi-quant) Negative (NEGATIVE); URINE RBC None Seen /hpf; URINE UROBILINOGEN Negative (NEGATIVE)
== END ==
LOC: ZCOL.LAB 13:11
PROVIDERS: Emergency Medicine
DX: N39.0 Urinary tract infection, site not specified (principal)

== ENCOUNTER → 2018-10-20 | Outpatient (CLI) | payer MEDICARE, BC ==
[2018-10-20 17:46] LABS: PH 5 (5-8); SQUAMOUS EPITHELIAL None Seen /hpf; URINE APPEARANCE Clear; URINE BACTERIA None Seen /hpf; URINE BILIRUBIN Negative (NEGATIVE); URINE BLOOD Negative (NEGATIVE); URINE COLOR Yellow; URINE GLUCOSE 3+ (NEGATIVE); URINE KETONE 1+ (NEGATIVE); URINE LEUKOCYTE ESTERASE Negative (NEGATIVE); URINE NITRATE Negative (NEGATIVE); URINE PROTEIN(semi-quant) Negative (NEGATIVE); URINE RBC None Seen /hpf; URINE UROBILINOGEN Negative (NEGATIVE)
[2018-10-20 20:00] LABS: COLLECTION METHOD CLEAN CATCH
== END ==
LOC: ZCOL.LAB 16:11
PROVIDERS: Emergency Medicine
DX: R82.90 Unspecified abnormal findings in urine (principal)

== ENCOUNTER → 2019-03-24 | Outpatient (CLI) | payer MEDICARE, BC ==
[2019-03-24 17:59] LABS: CALCIUM 8.8 mg/dL (8.4-10.2); CREATININE, serum 0.75 (0.66-1.25); POTASSIUM 4.6 mmol/L (3.4-5.0)
== END ==
LOC: ZCOL.LAB 17:27
PROVIDERS: Emergency Medicine
DX: E10.65 Type 1 diabetes mellitus with hyperglycemia (principal)

== ENCOUNTER → 2019-04-02 | Outpatient (CLI) | payer MEDICARE, BC ==
[2019-04-02 10:56] LABS: CHOLESTEROL RISK RATIO 5.6
== END ==
LOC: ZCOL.LAB 10:38
PROVIDERS: Emergency Medicine
DX: E10.65 Type 1 diabetes mellitus with hyperglycemia (principal)

== ENCOUNTER → 2019-04-14 | Outpatient (CLI) | payer MEDICARE, BC | LOC: ZCOL.LAB 11:40 | DX: E10.65 Type 1 diabetes mellitus with hyperglycemia (principal) ==

== ENCOUNTER → 2019-06-28 | Outpatient (CLI) | payer MEDICARE, BC ==
[2019-06-28 12:04] LABS: ALBUMIN 3.9 gm/dL (3.5-5.0); BILIRUBIN UNCONJUGATED 0.3 mg/dL (0.0-1.1); BILIRUBIN,DIRECT 0.1 mg/dL (0.0-0.4); BILIRUBIN,TOTAL 0.5 mg/dL (0.0-1.0); CALCIUM 9.1 mg/dL (8.4-10.2); CREATININE, serum 0.81 (0.66-1.25); POTASSIUM 3.9 mmol/L (3.4-5.0)
[2019-06-28 12:09] LABS: VALPROIC ACID (DEPAKENE) 82.2 ug/mL (50.0-100.0)
== END ==
LOC: ZCOL.LAB 11:26
PROVIDERS: Emergency Medicine
DX: E10.65 Type 1 diabetes mellitus with hyperglycemia (principal); E78.5 Hyperlipidemia, unspecified; G80.1 Spastic diplegic cerebral palsy

== ENCOUNTER → 2019-06-29 | Outpatient (CLI) | payer MEDICARE, BC ==
[2019-06-29 10:08] LABS: BASO # 0.1 (0.0-0.2); BASO % 0.8 % (0.0-2.0); EOS # 0.8 (0.0-0.7); EOS % 10.4 % (0-4.0); GRAN # 4.4 (1.4-6.5); GRAN % 55.5 % (42.2-75.2); HEMATOCRIT 44.8 % (42.0-52.0); LYMPH # 1.9 (1.2-3.4); LYMPH % 24.2 % (20.0-51.0); MEAN CELL VOLUME 86 fl (80.0-100.0); MEAN CORPUSCULAR HEMOGLOBIN 29 pg (27.0-31.0); MEAN CORPUSCULAR HGB CONC 34 g/dl (33.0-37.0); MEAN PLATELET VOLUME 11.1 fl (7.4-10.4); MONO # 0.7 (0.1-0.6); MONO % 8.5 % (1.7-9.3); PLATELET COUNT 184 K/mm3 (130-400); REDCELL DISTRIBUTION WIDTH-CV 12.4 % (11.5-14.5)
== END ==
LOC: ZCOL.LAB 09:55
PROVIDERS: Emergency Medicine
DX: G80.1 Spastic diplegic cerebral palsy (principal)

== ENCOUNTER → 2019-09-29 | Outpatient (CLI) | payer MEDICARE, BC | LOC: ZCOL.LAB 09:11 | DX: R73.09 Other abnormal glucose (principal) ==

== ENCOUNTER → 2019-10-04 | Outpatient (CLI) | payer MEDICARE, BC | LOC: ZCOL.LAB 11:42 | DX: E10.65 Type 1 diabetes mellitus with hyperglycemia (principal) ==

== ENCOUNTER → 2020-01-17 | Outpatient (CLI) | payer MEDICARE, BC ==
[2020-01-17 14:38] LABS: ALBUMIN 3.4 gm/dL (3.5-5.0); BILIRUBIN,TOTAL 0.4 mg/dL (0.0-1.0); CALCIUM 8.6 mg/dL (8.4-10.2); CREATININE, serum 0.8 (0.66-1.25); POTASSIUM 4.9 mmol/L (3.4-5.0)
== END ==
LOC: ZCOL.LAB 13:07
PROVIDERS: Emergency Medicine
DX: E78.5 Hyperlipidemia, unspecified (principal); E10.65 Type 1 diabetes mellitus with hyperglycemia

== ENCOUNTER → 2020-04-10 | Outpatient (CLI) | payer MEDICARE, BC ==
[2020-04-10 18:19] LABS: ALBUMIN 3.5 gm/dL (3.5-5.0); BILIRUBIN,TOTAL 0.6 mg/dL (0.0-1.0); CALCIUM 8.8 mg/dL (8.4-10.2); CREATININE, serum 0.89 (0.66-1.25); POTASSIUM 4.2 mmol/L (3.4-5.0); TOTAL PROTEIN 6.5 gm/dL (6.4-8.2)
== END ==
LOC: ZCOL.LAB 10:48
PROVIDERS: Emergency Medicine
DX: E10.65 Type 1 diabetes mellitus with hyperglycemia (principal)

== ENCOUNTER → 2020-04-20 | Outpatient (CLI) | payer MEDICARE, BC ==
[2020-04-20 13:32] LABS: BASO # 0.1 (0.0-0.2); BASO % 0.7 % (0.0-2.0); EOS # 0.6 (0.0-0.7); EOS % 7.7 % (0-4.0); GRAN # 4.8 (1.4-6.5); GRAN % 57.8 % (42.2-75.2); HEMATOCRIT 41.9 % (42.0-52.0); HEMOGLOBIN 13.9 g/dl (13.5-18.0); LYMPH # 1.9 (1.2-3.4); LYMPH % 22.6 % (20.0-51.0); MEAN CELL VOLUME 87 fl (80.0-100.0); MEAN CORPUSCULAR HEMOGLOBIN 29 pg (27.0-31.0); MEAN CORPUSCULAR HGB CONC 33 g/dl (33.0-37.0); MONO # 0.9 (0.1-0.6); MONO % 10.8 % (1.7-9.3); PLATELET COUNT 195 K/mm3 (130-400); RED BLOOD COUNT 4.83 M/mm3 (4.20-5.60); REDCELL DISTRIBUTION WIDTH-CV 12.6 % (11.5-14.5)
[2020-04-20 14:13] LABS: THYROID STIMULATING HORMONE 13.3 uIU/mL (0.465-4.680)
== END ==
LOC: ZCOL.LAB 13:04
PROVIDERS: Emergency Medicine
DX: T50.901A Poisoning by unspecified drugs, medicaments and biological substances, accidental (unintentional), initial encounter (principal); E03.2 Hypothyroidism due to medicaments and other exogenous substances; E10.65 Type 1 diabetes mellitus with hyperglycemia; E78.5 Hyperlipidemia, unspecified

== ENCOUNTER 2020-05-14 07:04 | Observation (INO) | payer MEDICARE, BC ==
[~2020-05-14] VITALS: Ht 188 cm; Wt 95.5 kg
[2020-05-14 08:02] LABS: BASO % 0.3 % (0.0-2.0); EOS % 0.1 % (0-4.0); GRAN # 11.8 (1.4-6.5); GRAN % 89.9 % (42.2-75.2); HEMATOCRIT 43.9 % (42.0-52.0); HEMOGLOBIN 14.7 g/dl (13.5-18.0); LYMPH # 0.5 (1.2-3.4); LYMPH % 4.1 % (20.0-51.0); MEAN CELL VOLUME 88 fl (80.0-100.0); MEAN CORPUSCULAR HEMOGLOBIN 29 pg (27.0-31.0); MEAN CORPUSCULAR HGB CONC 34 g/dl (33.0-37.0); MEAN PLATELET VOLUME 12.2 fl (7.4-10.4); MONO # 0.7 (0.1-0.6); PLATELET COUNT 131 K/mm3 (130-400); RED BLOOD COUNT 5.02 M/mm3 (4.20-5.60); REDCELL DISTRIBUTION WIDTH-CV 12.5 % (11.5-14.5)
[2020-05-14 08:12] LABS: ALANINE AMINOTRANSFERASE 10 U/L (4-49); ALBUMIN 3.6 gm/dL (3.5-5.0); ALKALINE PHOSPHATASE 96 U/L (50-136); ANION GAP 9 mmol/L (7-16); AST,SGOT 21 U/L (15-37); BILIRUBIN,TOTAL 0.7 mg/dL (0.0-1.0); BLOOD UREA NITROGEN 18 mg/dL (9-20); C-REACTIVE PROTEIN < 0.5 mg/dL (0.0-0.9); CALCIUM 8.5 mg/dL (8.4-10.2); CARBON DIOXIDE 26 mmol/L (22-30); CHLORIDE 101 mmol/L (98-107); CREATININE, serum 0.86 (0.66-1.25); GLUCOSE 393 mg/dL (74-106); LIPASE 18 U/L (23-300); POTASSIUM 4.1 mmol/L (3.4-5.0); SODIUM 136 mmol/L (137-145); TOTAL PROTEIN 6.6 gm/dL (6.4-8.2)
--- NOTE | 2020-05-14 11:10 | NUR ---
PATIENT ADMITED INTO ROOM 346 FROM ER WITH GI BLEED. ORIENTED BUT SLOW TO RESPOND. PATIENT HAS EXTENSIVE HEALTH HX INCLUDING CEREBRAL PALSY, SEIZURES, AND PARKINSONS. SEIZURE PADS INPLACE. IV ABX INFUSING INTO RIGHT HAND VIA PUMP. NPO. BS IN ER WAS 393 AND PATIENT WAS GIVEN INSULIN. PATIENT SCHEDULED FOR EGD IN AM, SEE ORDERS. HEAD TO TOE ASSESSMENT COMPLETE. ORIENTED TO ROOM. CALL LIGHT IN REACH. BED ALARM ON.
[2020-05-14 11:26] VITALS: BP 133/72; PULSE 89; TEMP 98
--- NOTE | 2020-05-14 11:50 | NUR ---
, & DISCUSSING PATIENT CASE.
[2020-05-14 13:55] LABS: HEMATOCRIT 40.3 % (42.0-52.0); HEMOGLOBIN 13.6 g/dl (13.5-18.0)
[2020-05-14] MEDS ORDERED: LIPITOR 40MG TA40 MG PO (14:25)
[2020-05-14] MEDS ORDERED: LASIX 40MG TABL40 MG PO (14:26)
[2020-05-14] MEDS ORDERED: LASIX 20MG TABL20 MG PO (14:27)
[2020-05-14] MEDS ORDERED: NOVOLOG FLEX100 U/ML SQ ×3 (14:30→14:31)
[2020-05-14] MEDS ORDERED: LEVEMIR FLEX100 U/ML SQ (14:31)
[2020-05-14] MEDS ORDERED: FORT1000TA PO (14:33)
[2020-05-14 16:25] VITALS: BP 119/73; PULSE 82; TEMP 97.6
[2020-05-14 19:27] VITALS: BP 125/64; PULSE 82; TEMP 97.9
--- NOTE | 2020-05-14 20:56 | NUR ---
Katheryn notified of Hgb of 6.7 and EKG.
[2020-05-14 21:15] LABS: HEMOGLOBIN 14.6 g/dl (13.5-18.0)
[2020-05-15] VITALS (14 sets, daily range): BP systolic 110–167; BP diastolic 53–84; PULSE 65–75; TEMP 97.6–98.5
[2020-05-15 06:23] LABS: BASO # 0.1 (0.0-0.2); BASO % 0.6 % (0.0-2.0); EOS # 0.2 (0.0-0.7); EOS % 2.3 % (0-4.0); GRAN # 5.7 (1.4-6.5); GRAN % 64.3 % (42.2-75.2); HEMATOCRIT 38.8 % (42.0-52.0); LYMPH # 1.9 (1.2-3.4); MEAN CELL VOLUME 88 fl (80.0-100.0); MEAN CORPUSCULAR HEMOGLOBIN 30 pg (27.0-31.0); MEAN CORPUSCULAR HGB CONC 34 g/dl (33.0-37.0); MEAN PLATELET VOLUME 11.3 fl (7.4-10.4); MONO % 11.5 % (1.7-9.3); PLATELET COUNT 179 K/mm3 (130-400); RED BLOOD COUNT 4.39 M/mm3 (4.20-5.60); REDCELL DISTRIBUTION WIDTH-CV 12.9 % (11.5-14.5)
[2020-05-15 06:34] LABS: CALCIUM 8.5 mg/dL (8.4-10.2); CREATININE, serum 0.81 (0.66-1.25); POTASSIUM 3.5 mmol/L (3.4-5.0)
--- NOTE | 2020-05-15 07:04 | NUR ---
At 1900 on 05/14/20 patient was lying in bed awake watching television. Patient alert and oriented x's 4, denies pain, scd's placed on patient. No requests or concerns verbalized by patient at this time.
--- NOTE | 2020-05-15 11:01 | NUR ---
First visit from the cork insulation setter. No needs right now.
--- NOTE | 2020-05-15 11:46 | NUR ---
Scratch Polisher met with patient to discuss discharge planning. Patient lives at [facility] and sees Dr. Moon for primary care. Patient has medications administered to him by staff at [facility] and receives assistance with ADLS. Patient advised he uses a walker. Patient has DPOA-HC paperwork in the chart that designates his father, Sahil (ph#[phone]). Patient plans to return to [facility] upon discharge. VENKAT contacted Glen at [facility] who advised they will accept patient upon discharge and actually have updated DPOA-HC paperwork for patient as they copy the hospital has still lists patient's late mother, Keeley. Glen faxed updated DPOA-HC documents that designate Sahil as primary and patient's sister as an alternate. Glen faxed over updated document and VENKAT placed on patient's chart. VENKAT faxed clinical updates to Glen. VENKAT then contacted patient's father, Sahil to review discharge plan. Sahil is in agreement with patient returning to [facility]. VENKAT will continue to follow.
--- NOTE | 2020-05-15 11:47 | NUR ---
Patient to EGD at this time.
--- NOTE | 2020-05-15 11:48 | NUR ---
Patient alert and oriented, answers questions appropriately. See assessment. Abdomen soft, non tender, non distended. Bowel sounds active x4 quads. No flatus. No bowel movement. Lap sites to abdomen with edges well approximated, no redness or drainage noted. HOME drain to lower midline abd, dressing CDI, compressed, scant amount of serosanguious drainage noted. Post op exercises reviewed with patient. No c/o at this time.
--- NOTE | 2020-05-15 11:56 | NUR ---
Patient alert and oriented, answers questions appropriately. See assessment. Abdomen soft, non tender, non distended. Bowel sounds active x4 quads. +Flatus. No bowel movements or emesis. No c/o at this time.
--- NOTE | 2020-05-15 12:40 | NUR ---
10:20 pt. brushed his teeth and had apparent bleeding in basin from rinsing his mouth-reported to Amy
--- NOTE | 2020-05-15 12:47 | NUR ---
Patient returns from EGD, assessment unchanged.
--- NOTE | 2020-05-15 19:42 | NUR ---
awake, alert, oriented x 3, respirations even and unlabored, skin warm and dry. Call bean w/i reach.
[2020-05-16 04:00] VITALS: BP 120/77; PULSE 65; TEMP 97.4
[2020-05-16 07:19] LABS: BASO # 0.1 (0.0-0.2); BASO % 0.8 % (0.0-2.0); EOS # 0.7 (0.0-0.7); EOS % 10.1 % (0-4.0); GRAN # 3.3 (1.4-6.5); GRAN % 49.4 % (42.2-75.2); HEMATOCRIT 37.5 % (42.0-52.0); HEMOGLOBIN 12.7 g/dl (13.5-18.0); LYMPH % 29.7 % (20.0-51.0); MEAN CELL VOLUME 86 fl (80.0-100.0); MEAN CORPUSCULAR HEMOGLOBIN 29 pg (27.0-31.0); MEAN CORPUSCULAR HGB CONC 34 g/dl (33.0-37.0); MEAN PLATELET VOLUME 10.9 fl (7.4-10.4); MONO # 0.7 (0.1-0.6); MONO % 9.8 % (1.7-9.3); PLATELET COUNT 165 K/mm3 (130-400); RED BLOOD COUNT 4.35 M/mm3 (4.20-5.60); REDCELL DISTRIBUTION WIDTH-CV 12.5 % (11.5-14.5)
[2020-05-16 07:29] LABS: CALCIUM 8.3 mg/dL (8.4-10.2); CREATININE, serum 0.78 (0.66-1.25); POTASSIUM 3.6 mmol/L (3.4-5.0)
[2020-05-16] MEDS ORDERED: PROTONIX 40MG T40 MG PO ×2 (07:40)
[2020-05-16] MEDS ORDERED: CARAFATE S1 GM/10 ML PO ×2 (07:41→10:08)
[2020-05-16 08:08] VITALS: BP 129/83; PULSE 63; TEMP 97.6
--- NOTE | 2020-05-16 08:08 | NUR ---
Assessment as charted. Pt resting in bed. Denies c/o pain. IV in right forearm, lacted ringers at 100 ml/hr, no rednessss or swelling noted. SCDs on BLE. Accu check 138.
--- NOTE | 2020-05-16 09:00 | NUR ---
Patient alert and oriented, answers questions appropriately. See assessment. Abdomen soft, non distended. Bowel sounds active x4 quads. +Flatus. No bloody stools or emesis. No c/o pain or discomfort.
--- NOTE | 2020-05-16 09:50 | NUR ---
Cage Unloader was notified that patient to discharge back to [facility] today. VENKAT contacted Regina at [facility] and set transport time for 1030. VENKAT then contacted patient's father, Sahil to provide discharge time. VENKAT faxed discharge orders to [facility]. No additional needs at this time.
[2020-05-16 10:07] VITALS: BP 129/83; PULSE 63; TEMP 97.6
--- NOTE | 2020-05-16 10:38 | NUR ---
INT removed. Catheter intact. Pressure held X1 minute. Bandaid applied
--- NOTE | 2020-05-16 11:04 | NUR ---
Attempted to call report to [facility], no answer after transfer.
--- NOTE | 2020-05-16 11:05 | NUR ---
Patient transfered to [facility] via wheelchair with transporatation staff at 1105. Paperwork sent. Will re-attempt to call report.
[2020-07-28] MEDS ORDERED: IMODIUM 2MG CAPS2 MG PO (06:57)
[2020-07-28] MEDS ORDERED: MIRALAX PA17 GM/Dose PO (06:58)
[2020-07-28] MEDS ORDERED: K-DUR 10 MEQ T10 MEQ PO (06:59)
[2020-07-28] MEDS ORDERED: B-121000 MCG PO (07:00)
== END 2020-05-16 11:00 ==
LOC: COL.ER 07:04 → SURG 10:01
PROVIDERS: Family Medicine; Physician Assistant; ADMIT Internal Medicine
DX: K92.0 Hematemesis (principal); K29.60 Other gastritis without bleeding; K22.10 Ulcer of esophagus without bleeding; K92.1 Melena; K40.90 Unilateral inguinal hernia, without obstruction or gangrene, not specified as recurrent; J44.9 Chronic obstructive pulmonary disease, unspecified; K44.9 Diaphragmatic hernia without obstruction or gangrene; G80.1 Spastic diplegic cerebral palsy; D72.829 Elevated white blood cell count, unspecified; N40.0 Benign prostatic hyperplasia without lower urinary tract symptoms; R56.9 Unspecified convulsions; E03.9 Hypothyroidism, unspecified; E10.8 Type 1 diabetes mellitus with unspecified complications; E78.5 Hyperlipidemia, unspecified; F31.9 Bipolar disorder, unspecified; F43.10 Post-traumatic stress disorder, unspecified; Z20.822 Contact with and (suspected) exposure to COVID-19; Z89.422 Acquired absence of other left toe(s); Z79.4 Long term (current) use of insulin; Z79.899 Other long term (current) drug therapy; Z79.82 Long term (current) use of aspirin; Z88.0 Allergy status to penicillin; Z88.2 Allergy status to sulfonamides; Z88.1 Allergy status to other antibiotic agents; Z91.018 Allergy to other foods
CPT/HCPCS: 99232-AI; 99239; C9113; G0378; J0696; J1815; J2405; J2704; J7120; Q9967

== ENCOUNTER → 2020-05-31 | Outpatient (CLI) | payer MEDICARE, BC ==
[~2020-05-31] MED LIST changes: +CARAFATE S1 GM/10 ML PO; +FORT1000TA PO; +IMODIUM 2MG CAPS2 MG PO; +K-DUR 10 MEQ T10 MEQ PO; +LASIX 20MG TABL20 MG PO; +LASIX 40MG TABL40 MG PO; +LEVEMIR FLEX100 U/ML SQ; +LIPITOR 40MG TA40 MG PO; +MIRALAX PA17 GM/Dose PO; +NOVOLOG FLEX100 U/ML SQ; +PROTONIX 40MG T40 MG PO
[2020-05-31 12:57] LABS: CALCIUM 8.5 mg/dL (8.4-10.2); CREATININE, serum 0.82 (0.66-1.25); POTASSIUM 4.2 mmol/L (3.4-5.0)
== END ==
LOC: ZCOL.LAB 11:58
PROVIDERS: Emergency Medicine
DX: E78.5 Hyperlipidemia, unspecified (principal)

== ENCOUNTER → 2020-06-07 | Outpatient (CLI) | payer MEDICARE, BC ==
[2020-06-07 16:05] LABS: COLLECTION METHOD CLEAN CATCH
[2020-06-07 16:30] LABS: PH 5 (5-8); SQUAMOUS EPITHELIAL None Seen /hpf; URINE APPEARANCE Clear; URINE BACTERIA None Seen /hpf; URINE BILIRUBIN Negative (NEGATIVE); URINE BLOOD Negative (NEGATIVE); URINE COLOR Straw; URINE GLUCOSE 3+ (NEGATIVE); URINE KETONE Trace (NEGATIVE); URINE LEUKOCYTE ESTERASE Negative (NEGATIVE); URINE NITRATE Negative (NEGATIVE); URINE PROTEIN(semi-quant) Negative (NEGATIVE); URINE RBC 0-2 /hpf; URINE UROBILINOGEN Negative (NEGATIVE); URINE WBC 0-2 /hpf
== END ==
LOC: ZCOL.LAB 15:03
PROVIDERS: Emergency Medicine
DX: N39.0 Urinary tract infection, site not specified (principal)

== ENCOUNTER → 2020-06-14 | Outpatient (CLI) | payer MEDICARE, BC ==
[2020-06-14 11:45] LABS: CALCIUM 8.4 mg/dL (8.4-10.2); CREATININE, serum 0.92 (0.66-1.25); POTASSIUM 3.7 mmol/L (3.4-5.0)
== END ==
LOC: ZCOL.LAB 11:16
PROVIDERS: Emergency Medicine
DX: E78.5 Hyperlipidemia, unspecified (principal)

== ENCOUNTER → 2020-07-27 | Outpatient (CLI) | payer MEDICARE, BC ==
[2020-07-27 14:21] LABS: HEMOGLOBIN A1C 8.6 %
[2020-07-27 14:22] LABS: MAGNESIUM 1.7 mg/dL (1.6-2.3)
[2020-07-27 14:58] LABS: VALPROIC ACID (DEPAKENE) 89.1 ug/mL (50.0-100.0)
== END ==
LOC: ZCOL.LAB 13:40
PROVIDERS: Emergency Medicine
DX: E10.65 Type 1 diabetes mellitus with hyperglycemia (principal); E78.5 Hyperlipidemia, unspecified

== ENCOUNTER 2020-07-28 09:18 | Day surgery (SDC) | payer MEDICARE, BC ==
[~2020-07-28] VITALS: Ht 188 cm; Wt 104.5 kg
[2020-07-28 10:39] VITALS: BP 130/76; PULSE 70; TEMP 98.5
[2020-07-28 11:15] VITALS: BP 123/85; PULSE 74; TEMP 97.5
--- NOTE | 2020-07-28 11:15 | NUR ---
Pt to GI [facility] 1 via cart from [employer]. Pt sleeping, awakens to verbal stimuli. Pt denies pain or nausea. HOB raised 50 degrees. Diet soda and muffin given per pt request. Father in room. Will continue to monitor. Call light within reach.
[2020-07-28] MEDS ORDERED: PROTONIX 40MG T40 MG PO (11:22)
[2020-07-28 11:30] VITALS: BP 112/74; PULSE 73
--- NOTE | 2020-07-28 11:30 | NUR ---
Pt tolerating food and fluids without difficulties. Pt denies needs. Call light within reach.
[2020-07-28 11:45] VITALS: BP 114/78; PULSE 66
--- NOTE | 2020-07-28 11:45 | NUR ---
Report given to Araseli RICARDO at [facility]. Questions invited and answered.
--- NOTE | 2020-07-28 12:00 | NUR ---
Discharge instructions reviewed with pt's father. Pt and father voice understanding. IV site discontinued with all parts intact. Pt assisted with dressing and 2 assist transfer to wheel chair.
--- NOTE | 2020-07-28 12:15 | NUR ---
Pt escorted to transportation vehicle. Pt assisted to [facility] by [employer] transportation.
== END 2020-07-28 12:15 | disposition home or self-care (01) ==
LOC: SDCO 09:18
DX: K22.10 Ulcer of esophagus without bleeding (principal); K44.9 Diaphragmatic hernia without obstruction or gangrene; K22.4 Dyskinesia of esophagus; E78.5 Hyperlipidemia, unspecified; G80.1 Spastic diplegic cerebral palsy; E10.40 Type 1 diabetes mellitus with diabetic neuropathy, unspecified; E66.9 Obesity, unspecified; Z20.822 Contact with and (suspected) exposure to COVID-19; E03.9 Hypothyroidism, unspecified; F31.9 Bipolar disorder, unspecified; Z79.890 Hormone replacement therapy; Z79.4 Long term (current) use of insulin; Z82.49 Family history of ischemic heart disease and other diseases of the circulatory system; Z79.899 Other long term (current) drug therapy
CPT/HCPCS: J2704; J7030

== ENCOUNTER → 2021-01-18 | Outpatient (CLI) | payer MEDICARE, BC ==
[2021-01-18 10:54] LABS: BASO % 0.5 % (0.0-2.0); EOS # 0.3 K/mm3 (0.0-0.7); EOS % 3.3 % (0-4.0); GRAN # 4.8 K/mm3 (1.4-6.5); GRAN % 63.7 % (42.2-75.2); HEMATOCRIT 41.4 % (42.0-52.0); HEMOGLOBIN 13.5 g/dl (13.5-18.0); LYMPH # 1.6 K/mm3 (1.2-3.4); LYMPH % 21.4 % (20.0-51.0); MEAN CELL VOLUME 88 fl (80.0-100.0); MEAN CORPUSCULAR HEMOGLOBIN 29 pg (27.0-31.0); MEAN CORPUSCULAR HGB CONC 33 g/dl (33.0-37.0); MEAN PLATELET VOLUME 12.7 fl (7.4-10.4); MONO # 0.8 K/mm3 (0.1-0.6); MONO % 10.6 % (1.7-9.3); PLATELET COUNT 201 K/mm3 (130-400); RED BLOOD COUNT 4.69 M/mm3 (4.20-5.60); REDCELL DISTRIBUTION WIDTH-CV 12.8 % (11.5-14.5)
== END ==
LOC: ZCOL.LAB 09:16
PROVIDERS: Family Medicine
DX: E10.65 Type 1 diabetes mellitus with hyperglycemia (principal); E78.5 Hyperlipidemia, unspecified; K25.9 Gastric ulcer, unspecified as acute or chronic, without hemorrhage or perforation

== ENCOUNTER → 2021-03-05 | Outpatient (CLI) | payer MEDICARE, BC ==
[2021-03-05 11:12] LABS: BASO # 0.1 K/mm3 (0.0-0.2); BASO % 0.8 % (0.0-2.0); EOS # 0.1 K/mm3 (0.0-0.7); EOS % 1.9 % (0.0-4.0); GRAN % 62.1 % (42.2-75.2); HEMATOCRIT 40.6 % (42.0-52.0); HEMOGLOBIN 13.4 g/dl (13.5-18.0); LYMPH # 1.6 K/mm3 (1.2-3.4); LYMPH % 24.6 % (20.0-51.0); MEAN CELL VOLUME 87 fl (80.0-100.0); MEAN CORPUSCULAR HEMOGLOBIN 29 pg (27-31); MEAN CORPUSCULAR HGB CONC 33 g/dl (33.0-37.0); MEAN PLATELET VOLUME 12.7 fl (7.4-10.4); MONO # 0.7 K/mm3 (0.1-0.6); MONO % 10.1 % (1.7-9.3); PLATELET COUNT 171 K/mm3 (130-400); RED BLOOD COUNT 4.67 M/mm3 (4.20-5.60); REDCELL DISTRIBUTION WIDTH-CV 12.3 % (11.5-14.5)
[2021-03-05 11:21] LABS: ALBUMIN 3.1 gm/dL (3.4-4.8); ALKALINE PHOSPHATASE 96 U/L (40-150); ANION GAP 10 mmol/L (7-16); AST,SGOT 5 U/L (5-34); BILIRUBIN,TOTAL 0.6 mg/dL (0.2-1.2); BLOOD UREA NITROGEN 16 mg/dL (8-26); CALCIUM 8.4 mg/dL (8.4-10.2); CARBON DIOXIDE 26 mmol/L (23-31); CHLORIDE 100 mmol/L (98-107); CREATININE, serum 0.86 mg/dL (0.72-1.25); GLUCOSE 383 mg/dL (70-99); POTASSIUM 4.7 mmol/L (3.5-4.5); SODIUM 136 mmol/L (136-145); TOTAL PROTEIN 5.6 gm/dL (6.2-8.1)
[2021-03-05 11:23] LABS: ALANINE AMINOTRANSFERASE < 6 U/L (0-55)
== END ==
LOC: ZCOL.LAB 10:43
PROVIDERS: Family Medicine
DX: E10.65 Type 1 diabetes mellitus with hyperglycemia (principal); E78.5 Hyperlipidemia, unspecified

== ENCOUNTER 2021-05-31 00:39 | Inpatient (IN) | payer MEDICARE, BC, MEDICAID ==
[2021-05-31] VITALS (595 sets, daily range): BP systolic 109–155; BP diastolic 65–97; PULSE 79–103; TEMP 97.8–100.9; O2SAT 74–100
[~2021-05-31] VITALS: Ht 175.3 cm; Wt 90.3 kg
[2021-05-31 00:55] LABS: HEMOGLOBIN 14.8 g/dl (13.5-18.0); MEAN CELL VOLUME 90 fl (80.0-100.0); MEAN CORPUSCULAR HEMOGLOBIN 29 pg (27-31); MEAN CORPUSCULAR HGB CONC 32 g/dl (33.0-37.0); MEAN PLATELET VOLUME 11.5 fl (7.4-10.4); PLATELET COUNT 291 K/mm3 (130-400); RED BLOOD COUNT 5.14 M/mm3 (4.20-5.60); REDCELL DISTRIBUTION WIDTH-CV 12.7 % (11.5-14.5)
[2021-05-31 01:13] LABS: ALBUMIN 3.8 gm/dL (3.4-4.8); ALKALINE PHOSPHATASE 99 U/L (40-150); ANION GAP 36 mmol/L (7-16); AST,SGOT 7 U/L (5-34); BILIRUBIN,TOTAL 0.4 mg/dL (0.2-1.2); BLOOD UREA NITROGEN 33 mg/dL (8-26); C-REACTIVE PROTEIN 1.08 mg/dL (0.00-0.50); CHLORIDE 98 mmol/L (98-107); POTASSIUM 5.3 mmol/L (3.5-4.5); SODIUM 140 mmol/L (136-145); TOTAL PROTEIN 7.7 gm/dL (6.2-8.1)
[2021-05-31 01:15] LABS: ALANINE AMINOTRANSFERASE < 6 U/L (0-55)
[2021-05-31 01:17] LABS: CARBON DIOXIDE 6 mmol/L (23-31); GLUCOSE 776 mg/dL (70-99)
[2021-05-31 01:20] LABS: TROPONIN-I < 0.010 ng/mL (0.00-0.033)
[2021-05-31 01:27] LABS: ACETONE,SERUM LARGE
[2021-05-31 01:37] LABS: LYMPHOCYTE 5 % (20.0-51.0); NEUTROPHILS 91 % (42.0-75.2); PLATELET ESTIMATE NORMAL (NORMAL)
[2021-05-31 01:38] LABS: HYPOCHROMIA 1+
[2021-05-31 02:35] LABS: COLLECTION METHOD CATHETER
[2021-05-31 02:43] LABS: PH 5 (5-8); SQUAMOUS EPITHELIAL 0-2 /hpf (0-10); URINE APPEARANCE Clear (CLEAR/HAZY); URINE BACTERIA None Seen /hpf (NONE SEEN); URINE BILIRUBIN Negative (NEGATIVE); URINE BLOOD 1+ (NEGATIVE); URINE COLOR Yellow (YELLOW); URINE GLUCOSE 3+ (NEGATIVE); URINE KETONE 2+ (NEGATIVE); URINE LEUKOCYTE ESTERASE Negative (NEGATIVE); URINE NITRATE Negative (NEGATIVE); URINE PROTEIN(semi-quant) Negative (NEGATIVE); URINE RBC 0-2 /hpf (0-2); URINE UROBILINOGEN Negative (NEGATIVE)
[2021-05-31 03:48] LABS: MAGNESIUM 2.3 mg/dL (1.6-2.6); PHOSPHOROUS 8.5 mg/dL (2.3-4.7)
[2021-05-31] MEDS ORDERED: VITAMIN D31000 IU PO (04:21)
[2021-05-31] MEDS ORDERED: TYLENOL 325MG325 MG PO (04:22)
[2021-05-31 05:22] LABS: BASO % 0.2 % (0.0-2.0); EOS % 0.1 % (0.0-4.0); GRAN # 14.5 K/mm3 (1.4-6.5); GRAN % 83.4 % (42.2-75.2); HEMATOCRIT 45.5 % (42.0-52.0); LYMPH # 1.1 K/mm3 (1.2-3.4); LYMPH % 6.3 % (20.0-51.0); MEAN CELL VOLUME 88 fl (80.0-100.0); MEAN CORPUSCULAR HEMOGLOBIN 29 pg (27-31); MEAN CORPUSCULAR HGB CONC 33 g/dl (33.0-37.0); MEAN PLATELET VOLUME 11.9 fl (7.4-10.4); MONO # 1.5 K/mm3 (0.1-0.6); MONO % 8.6 % (1.7-9.3); REDCELL DISTRIBUTION WIDTH-CV 13.1 % (11.5-14.5)
[2021-05-31 05:34] LABS: PLATELET COUNT 175 K/mm3 (130-400)
[2021-05-31 05:35] LABS: PROTHROMBIN TIME 11.5 SECONDS (9.7-12.8)
[2021-05-31 05:53] LABS: ANION GAP 27 mmol/L (7-16); BLOOD UREA NITROGEN 33 mg/dL (8-26); CALCIUM 8.7 mg/dL (8.4-10.2); CHLORIDE 106 mmol/L (98-107); CREATININE, serum 2.31 mg/dL (0.72-1.25); POTASSIUM 4.3 mmol/L (3.5-4.5); SODIUM 144 mmol/L (136-145)
[2021-05-31 05:57] LABS: SALICYLATE < 5.0 mg/dL (15.0-30.0)
[2021-05-31 05:59] LABS: ARTERIAL BLD GAS O2 SATURATION 97.5 % (92-100); ARTERIAL BLD GAS TCO2 CT 14.2; ARTERIAL BLOOD GAS BASE EXCESS -9.6 (-2-2); ARTERIAL BLOOD GAS HCO3 13.5 meq/L (22-26); ARTERIAL BLOOD GAS pH 7.37 (7.35-7.45)
[2021-05-31 05:59] LABS: CARBON DIOXIDE 11 mmol/L (23-31); GLUCOSE 536 mg/dL (70-99)
[2021-05-31 06:01] LABS: ARTERIAL BLOOD GAS PCO2 23.9 mmHg (35-45)
[2021-05-31 06:13] LABS: TROPONIN-I 0.014 ng/mL (0.00-0.033); TSH w REFLEX 0.574 uIU/mL (0.350-4.940)
[2021-05-31 07:28] LABS: CALCIUM 8.3 mg/dL (8.4-10.2); CREATININE, serum 2.06 mg/dL (0.72-1.25); POTASSIUM 3.9 mmol/L (3.5-4.5)
[2021-05-31 09:54] LABS: CALCIUM 8.4 mg/dL (8.4-10.2); CREATININE, serum 1.77 mg/dL (0.72-1.25); POTASSIUM 3.5 mmol/L (3.5-4.5)
--- NOTE | 2021-05-31 10:30 | NUR ---
Patient covid positive. Patient is a readmission from earlier this month. Patient resides at [facility]. He receives help with his ADL's from the care staff at [facility]. He utilizes a walker to assist with ambulation and has no oxygen needs prior to arriving to hospital. Patient's PCP is Dr. Moon at [facility] and [facility] manages his medications. Patient has a DPOA-HC esablished listing his father Sahil and a copy can be found in his EMR. Attempt made to contact the patient's father and was unsuccessful. Unable to leave a message.
[2021-05-31 11:27] LABS: CALCIUM 8.5 mg/dL (8.4-10.2); CREATININE, serum 1.66 mg/dL (0.72-1.25); POTASSIUM 3.5 mmol/L (3.5-4.5)
--- NOTE | 2021-05-31 12:30 | NUR ---
ST AT BEDSIDE FOR EVALUATION. RECOMMENDS MECHANICAL SOFT DIET WITH THIN LIQUIDS AND ORAL MEDICATION ADMINISTRATION.
--- NOTE | 2021-05-31 14:00 | NUR ---
PATIENT ASSISTED WITH MEAL AT THIS TIME. NO SIGNS OR SYMPTOMS OF ASPIRATION.
--- NOTE | 2021-05-31 15:30 | NUR ---
PATIENT RESTING IN BED, OXYGEN SATURATION DECREASES INTO 80'S WITH DEEP SLEEP. OXYGEN APPLIED AT 2L/NC.
--- NOTE | 2021-05-31 19:15 | NUR ---
Received report from DAVION Henderson, and DAVION Bojorquez.
--- NOTE | 2021-05-31 21:00 | NUR ---
Patient resting quietly in bed. Appears somewhat aphasic when assessing orientation. Patient able to easily answer yes/no questions. Denies being in any pain or discomfort. Vitals within normal limits. No drips or IV fluids infusing at this time. Patient receiving 2L oxygen via nasal cannula, tolerating well.
[2021-06-01] VITALS (429 sets, daily range): BP systolic 94–123; BP diastolic 62–78; PULSE 68–78; TEMP 97.5–98.9; O2SAT 82–100
[2021-06-01 04:56] LABS: BASO % 0.3 % (0.0-2.0); EOS % 0.2 % (0.0-4.0); GRAN # 9.6 K/mm3 (1.4-6.5); GRAN % 73.7 % (42.2-75.2); HEMATOCRIT 38.3 % (42.0-52.0); LYMPH # 2.2 K/mm3 (1.2-3.4); LYMPH % 16.6 % (20.0-51.0); MEAN CELL VOLUME 86 fl (80.0-100.0); MEAN CORPUSCULAR HEMOGLOBIN 29 pg (27-31); MEAN CORPUSCULAR HGB CONC 33 g/dl (33.0-37.0); MEAN PLATELET VOLUME 10.8 fl (7.4-10.4); MONO # 1.1 K/mm3 (0.1-0.6); MONO % 8.7 % (1.7-9.3); PLATELET COUNT 194 K/mm3 (130-400); RED BLOOD COUNT 4.47 M/mm3 (4.20-5.60); REDCELL DISTRIBUTION WIDTH-CV 13.3 % (11.5-14.5)
[2021-06-01 05:05] LABS: HEMOGLOBIN 12.8 g/dl (13.5-18.0)
[2021-06-01 05:17] LABS: ALBUMIN 3.1 gm/dL (3.4-4.8); ALKALINE PHOSPHATASE 65 U/L (40-150); ANION GAP 10 mmol/L (7-16); AST,SGOT 7 U/L (5-34); BILIRUBIN,TOTAL 0.5 mg/dL (0.2-1.2); BLOOD UREA NITROGEN 25 mg/dL (8-26); CALCIUM 8.6 mg/dL (8.4-10.2); CARBON DIOXIDE 26 mmol/L (23-31); CHLORIDE 109 mmol/L (98-107); CREATININE, serum 1.27 mg/dL (0.72-1.25); GLUCOSE 146 mg/dL (70-99); POTASSIUM 3.3 mmol/L (3.5-4.5); SODIUM 145 mmol/L (136-145); TOTAL PROTEIN 5.9 gm/dL (6.2-8.1)
[2021-06-01 05:34] LABS: ALANINE AMINOTRANSFERASE < 6 U/L (0-55)
--- NOTE | 2021-06-01 10:07 | NUR ---
60 yo male admitted 05/31/21 from correction with acute mental status change and hyperglycemia. History on admit showed positive COVID test 05/09/21. Covid test 05/31/21 with minimal respiratory symptoms but with sepsis of unknown source and questionable left lower lobe pneumonia per CXR. Today requires 2L oxygen to maintain SAO2 in mid-90%. Afebrile since admit. Noted documentation decreased lung sounds in bases without any respiratory distress. No cough. Patient had been placed in COVID transmission precautions on admit while more assessment completed in ICU setting. Patient transitioning to medical unit --- 22 days post first COVID test and stable respiratory condition -- will discontinue COVID Isolation upon transfer. Ben Ivy RN
--- NOTE | 2021-06-01 18:44 | NUR ---
PT PLEASANT, AO TO SELF, SOME ORIENTATION QUESTIONS ANSWERED INNAPROPRIATELY, ASSESSMENT PERFORMED, ALLERIGIES VERIFIED, PT DENIES PAIN, ATE 100% OF MEAL AFTER INSULIN ADMINISTRATION, CHATTERJEE EMPTIED PER PROTOCOL, PT FATHER UPDATED, NO OTHER NEEDS
--- NOTE | 2021-06-01 22:00 | NUR ---
PT IN BED. IS ALERT AND ORIENTED X2. HAS INT TO LEFT FOREARM, DC'D, ANGIOCATH INTACT. HAS RT PICC, BOTH LUMENS FLUSHED WITH GOOD BLOOD RETURN. TAKES HS MEDS WITHOUT PROBLEM. DEPENDENT EDEMA BLE, SCDS ON. PARTIAL LEFT FOOT AMPUTATION, CALLOUS TO RT HEEL. DENIES PAIN AT THIS TIME.
--- NOTE | 2021-06-02 03:00 | NUR ---
PT RESTING WELL. IV ANTIBIOTIC CONNECTED, INFUSING TO RT PICC WITHOUT PROBLEM.
--- NOTE | 2021-06-02 04:00 | NUR ---
IV ANTIBIOTIC COMPLETE. PICC FLUSHED.
[2021-06-02 04:43] VITALS: BP 125/75; PULSE 70; TEMP 97.6
--- NOTE | 2021-06-02 06:00 | NUR ---
TAKES SCHEDULED AM MEDS WITHOUT PROBLEM.
[2021-06-02 06:25] LABS: BASO % 0.4 % (0.0-2.0); EOS # 0.1 K/mm3 (0.0-0.7); EOS % 1.1 % (0.0-4.0); GRAN # 4.3 K/mm3 (1.4-6.5); GRAN % 60.5 % (42.2-75.2); HEMOGLOBIN 12.6 g/dl (13.5-18.0); LYMPH % 27.9 % (20.0-51.0); MEAN CELL VOLUME 88 fl (80.0-100.0); MEAN CORPUSCULAR HEMOGLOBIN 28 pg (27-31); MEAN CORPUSCULAR HGB CONC 32 g/dl (33.0-37.0); MEAN PLATELET VOLUME 10.8 fl (7.4-10.4); MONO # 0.7 K/mm3 (0.1-0.6); MONO % 9.7 % (1.7-9.3); PLATELET COUNT 135 K/mm3 (130-400); RED BLOOD COUNT 4.44 M/mm3 (4.20-5.60); REDCELL DISTRIBUTION WIDTH-CV 13.2 % (11.5-14.5)
[2021-06-02 06:40] LABS: ALANINE AMINOTRANSFERASE < 6 U/L (0-55); ALBUMIN 2.9 gm/dL (3.4-4.8); ALKALINE PHOSPHATASE 61 U/L (40-150); ANION GAP 9 mmol/L (7-16); AST,SGOT 8 U/L (5-34); BILIRUBIN,TOTAL 0.5 mg/dL (0.2-1.2); BLOOD UREA NITROGEN 16 mg/dL (8-26); CARBON DIOXIDE 28 mmol/L (23-31); CHLORIDE 108 mmol/L (98-107); CREATININE, serum 0.81 mg/dL (0.72-1.25); GLUCOSE 114 mg/dL (70-99); POTASSIUM 3.3 mmol/L (3.5-4.5); SODIUM 145 mmol/L (136-145); TOTAL PROTEIN 5.7 gm/dL (6.2-8.1)
--- NOTE | 2021-06-02 08:00 | NUR ---
PT ALERT AND ORIENTED. PT ABLE TO TAKE AM MEDICATIONS WITH WATER. PT HAS S1,S2 HEARD, CLEAR LUNG SOUNDS AUSCULTATED. PT DENIES PAIN. LEFT HEEL HAS ULCER, SCABBED, PLACED BOOTS ON. SACRUM REDDENED, BLANCHABLE, MEPELEX PLACED. PT GIVEN PARTIAL BED BATH WITH WIPES. CLEANED OF INCONTINENCE, CHATTERJEE CARE PROVIDED. PT CALL LIGHT WITHIN REACH, BREAKFAST ASSISTED.
[2021-06-02 08:48] VITALS: BP 130/73; PULSE 76; TEMP 99.1
[2021-06-02] MEDS ORDERED: DOXYCYCLINE HY100 MG PO ×2 (09:51→12:38)
--- NOTE | 2021-06-02 10:15 | NUR ---
Patient is ready for DC. Contacted [facility] to confirm that they would be able to take the patient back even with being covid positive. Care staff states that the patient tested positive on 05/14. Staff is able to pick the patient up today, but due to already scheduled transports, they will not be able to be here until [id number]. Clinical updates and discharge orders faxed to [facility]. Discharge plan: [facility] this afternoon
--- NOTE | 2021-06-02 11:33 | NUR ---
SW contacted by [facility] charger stating that per her management team, the patients information has to be reviewed by the [facility] DON before the patient can be accepted back. RN reports that they are unable to take this patient back today is that the DON works tonight and is unable to review the patient's information until then. RN states that the earliest they would be able to take this patient back is Friday.
[2021-06-02 11:44] VITALS: BP 125/83; PULSE 72; TEMP 98.5
[2021-06-02 16:00] VITALS: BP 115/77; PULSE 67; TEMP 97.3
--- NOTE | 2021-06-02 18:46 | NUR ---
PT CONTINUING ON PLAN OF CARE. NO SIGNIFICANT CHANGES IN PT STATUS THIS SHIFT. REPORT TO BE GIVEN TO PENOLOGY PROFESSOR.
[2021-06-02 19:53] VITALS: BP 115/84; PULSE 79; TEMP 99.1
--- NOTE | 2021-06-02 20:30 | NUR ---
Initial shift assessment done-pleasant/alert/oriented. VSS, Tele on NSR,,PICC to REY, Did have a snack of some chocolate pudding tonight- no other requests. SCD,s on, heel boots on. Was incontinent of soft loose stool- was cleaned up-repositioned.
[2021-06-03 00:21] VITALS: BP 127/85; PULSE 65; TEMP 99.2
[2021-06-03 04:16] VITALS: BP 113/85; PULSE 67; TEMP 97.7
--- NOTE | 2021-06-03 05:28 | NUR ---
No requests throughout the night, did have one temp of 99.2 but otherwise afebrile. Has had 2 episodes incontinence of soft brown stool this shift-
[2021-06-03 06:55] LABS: BASO % 0.5 % (0.0-2.0); EOS # 0.2 K/mm3 (0.0-0.7); GRAN # 3.4 K/mm3 (1.4-6.5); GRAN % 54.3 % (42.2-75.2); HEMOGLOBIN 12.1 g/dl (13.5-18.0); LYMPH % 32.2 % (20.0-51.0); MEAN CELL VOLUME 85 fl (80.0-100.0); MEAN CORPUSCULAR HEMOGLOBIN 28 pg (27-31); MEAN CORPUSCULAR HGB CONC 33 g/dl (33.0-37.0); MEAN PLATELET VOLUME 11.6 fl (7.4-10.4); MONO # 0.6 K/mm3 (0.1-0.6); MONO % 9.7 % (1.7-9.3); PLATELET COUNT 114 K/mm3 (130-400); RED BLOOD COUNT 4.28 M/mm3 (4.20-5.60)
[2021-06-03 07:04] LABS: HEMATOCRIT 36.5 % (42.0-52.0)
[2021-06-03 07:17] LABS: ALBUMIN 2.7 gm/dL (3.4-4.8); BILIRUBIN,TOTAL 0.6 mg/dL (0.2-1.2); CALCIUM 7.9 mg/dL (8.4-10.2); CREATININE, serum 0.7 mg/dL (0.72-1.25); POTASSIUM 3.8 mmol/L (3.5-4.5); TOTAL PROTEIN 5.3 gm/dL (6.2-8.1)
[2021-06-03 07:40] VITALS: BP 126/87; PULSE 72; TEMP 98.2
--- NOTE | 2021-06-03 09:00 | NUR ---
PT PLEASANT, AOX4, DENIES PAIN, INCONTINENT OF STOOL, PERICARE PROVIDED, SCROTAL SCRATCHING NOTED AND DOCUMENTED, PROVIDED DIET PEPSI PER REQUEST, ICE WATER PROVIDED, MEDICATIONS GIVEN, PT ATE BREAKFAST WITH ASSISTANCE OF PCT, ASSESSMENT PERFORMED, SHEETS CHANGED, CATHETER CARE PROVIDED, NO OTHER NEEDS
--- NOTE | 2021-06-03 11:35 | NUR ---
[facility] contacted for update on patient's discharge. cloth printing utility worker notifies me that the DON reviewed the patient's paperwork last night and the patient is ok to retun today.RN reports that she will not have transportation until this afternoon. Agreement for transportation time of 1500 made. Patient's RN and physician notified. Clinical updates faxed. Discharge plan: [facility] at 1500
[2021-06-03 12:54] VITALS: BP 114/73; PULSE 68; TEMP 98
--- NOTE | 2021-06-03 13:37 | NUR ---
PICC REMOVED, CHATTERJEE REMOVED, PT INCONTINENT OF STOOL, PERICARE PROVIDED, SHEETS CHANGED, GOWN CHANGED, NO OTHER NEEDS
--- NOTE | 2021-06-03 15:26 | NUR ---
PT RIDE HERE FROM [facility], USED SIT TO STAND TO GET INTO PT WHEELCHAIR BROUGHT FROM FACILITY, NO OTHER NEEDS
== END 2021-06-03 15:40 | DRG 871 ==
LOC: COL.ER 00:39 → ICU 02:53 → MEDICAL 06-01 14:04
PROVIDERS: Nurse Practitioner; Nurse Practitioner Family; ADMIT Internal Medicine
PROC: 02HV33Z Insertion of Infusion Device into Superior Vena Cava, Percutaneous Approach (ICD-10-PCS; principal; 2021-05-31)
DX: A41.9 Sepsis, unspecified organism (principal); E10.10 Type 1 diabetes mellitus with ketoacidosis without coma; G93.41 Metabolic encephalopathy; U07.1 COVID-19; N17.9 Acute kidney failure, unspecified; R65.20 Severe sepsis without septic shock; G80.9 Cerebral palsy, unspecified; E03.9 Hypothyroidism, unspecified; E78.5 Hyperlipidemia, unspecified; N40.0 Benign prostatic hyperplasia without lower urinary tract symptoms; F31.9 Bipolar disorder, unspecified; F43.10 Post-traumatic stress disorder, unspecified; G40.909 Epilepsy, unspecified, not intractable, without status epilepticus; E87.5 Hyperkalemia; E87.6 Hypokalemia; Z23 Encounter for immunization
CPT/HCPCS: 99223-AI; 99232-AI; 99239; C1751; J0696; J1650; J1815; J2185; J3480; J7030

== ENCOUNTER → 2021-06-06 | Outpatient (CLI) | payer MEDICARE, BC, MEDICAID ==
[~2021-06-06] MED LIST changes: +DOXYCYCLINE HY100 MG PO; +TYLENOL 325MG325 MG PO; +VITAMIN D31000 IU PO
[2021-06-06 10:33] LABS: BASO # 0.1 K/mm3 (0.0-0.2); BASO % 0.6 % (0.0-2.0); EOS # 0.5 K/mm3 (0.0-0.7); EOS % 5.1 % (0.0-4.0); GRAN # 5.8 K/mm3 (1.4-6.5); GRAN % 60.5 % (42.2-75.2); HEMATOCRIT 43.3 % (42.0-52.0); HEMOGLOBIN 14.2 g/dl (13.5-18.0); LYMPH # 2.4 K/mm3 (1.2-3.4); LYMPH % 24.8 % (20.0-51.0); MEAN CELL VOLUME 87 fl (80.0-100.0); MEAN CORPUSCULAR HEMOGLOBIN 28 pg (27-31); MEAN CORPUSCULAR HGB CONC 33 g/dl (33.0-37.0); MEAN PLATELET VOLUME 12.1 fl (7.4-10.4); MONO # 0.8 K/mm3 (0.1-0.6); MONO % 8.1 % (1.7-9.3); PLATELET COUNT 156 K/mm3 (130-400); REDCELL DISTRIBUTION WIDTH-CV 12.9 % (11.5-14.5)
[2021-06-06 10:35] LABS: ALBUMIN 3.4 gm/dL (3.4-4.8); BILIRUBIN,TOTAL 0.4 mg/dL (0.2-1.2); CALCIUM 8.8 mg/dL (8.4-10.2); CREATININE, serum 0.81 mg/dL (0.72-1.25); MAGNESIUM 1.9 mg/dL (1.6-2.6); POTASSIUM 3.8 mmol/L (3.5-4.5); THYROID STIMULATING HORMONE 6.282 uIU/mL (0.350-4.940); TOTAL PROTEIN 6.3 gm/dL (6.2-8.1)
== END ==
LOC: ZCOL.LAB 09:58
PROVIDERS: Family Medicine
DX: E78.5 Hyperlipidemia, unspecified (principal); E10.65 Type 1 diabetes mellitus with hyperglycemia; E03.9 Hypothyroidism, unspecified; N17.9 Acute kidney failure, unspecified

== ENCOUNTER → 2021-06-11 | Outpatient (CLI) | payer MEDICARE, BC, MEDICAID | LOC: ZCOL.LAB 16:01 | DX: E72.20 Disorder of urea cycle metabolism, unspecified (principal) ==

== ENCOUNTER → 2021-10-22 | Outpatient (CLI) | payer MEDICARE, BC, MEDICAID | LOC: ZCOL.LAB 15:27 | DX: Z86.13 Personal history of malaria (principal) ==

== ENCOUNTER → 2021-10-25 | Outpatient (CLI) | payer MEDICARE, BC, MEDICAID ==
[2021-10-25 13:05] LABS: BASO % 0.5 % (0.0-2.0); EOS # 0.3 K/mm3 (0.0-0.7); EOS % 3.6 % (0.0-4.0); GRAN # 4.8 K/mm3 (1.4-6.5); GRAN % 65.1 % (42.2-75.2); HEMATOCRIT 42.8 % (42.0-52.0); HEMOGLOBIN 13.9 g/dl (13.5-18.0); LYMPH # 1.6 K/mm3 (1.2-3.4); LYMPH % 21.4 % (20.0-51.0); MEAN CELL VOLUME 87 fl (80.0-100.0); MEAN CORPUSCULAR HEMOGLOBIN 28 pg (27-31); MEAN CORPUSCULAR HGB CONC 33 g/dl (33.0-37.0); MEAN PLATELET VOLUME 11.8 fl (7.4-10.4); MONO # 0.7 K/mm3 (0.1-0.6); PLATELET COUNT 185 K/mm3 (130-400); RED BLOOD COUNT 4.93 M/mm3 (4.20-5.60); REDCELL DISTRIBUTION WIDTH-CV 12.7 % (11.5-14.5)
[2021-10-25 13:07] LABS: ALBUMIN 3.4 gm/dL (3.4-4.8); ALKALINE PHOSPHATASE 90 U/L (40-150); ANION GAP 16 mmol/L (7-16); AST,SGOT 5 U/L (5-34); BILIRUBIN,TOTAL 0.5 mg/dL (0.2-1.2); BLOOD UREA NITROGEN 22 mg/dL (8-26); CALCIUM 9.3 mg/dL (8.4-10.2); CARBON DIOXIDE 24 mmol/L (23-31); CHLORIDE 100 mmol/L (98-107); CREATININE, serum 0.91 mg/dL (0.72-1.25); GLUCOSE 326 mg/dL (70-99); POTASSIUM 4.3 mmol/L (3.5-4.5); SODIUM 140 mmol/L (136-145); THYROID STIMULATING HORMONE 0.607 uIU/mL (0.350-4.940); TOTAL PROTEIN 6.4 gm/dL (6.2-8.1)
[2021-10-25 13:16] LABS: ALANINE AMINOTRANSFERASE < 6 U/L (0-55)
[2021-10-25 13:17] LABS: VALPROIC ACID (DEPAKENE) 68.6 ug/mL (43.5-90.5)
== END ==
LOC: ZCOL.LAB 12:35
PROVIDERS: Family Medicine
DX: E10.65 Type 1 diabetes mellitus with hyperglycemia (principal); E03.9 Hypothyroidism, unspecified; E55.9 Vitamin D deficiency, unspecified; F31.9 Bipolar disorder, unspecified

== ENCOUNTER → 2022-06-16 | Outpatient (REF) | payer MEDICARE, BC, MEDICAID ==
[2022-06-16 19:22] LABS: CHOLESTEROL RISK RATIO 4.9; MAGNESIUM 1.7 mg/dL (1.6-2.6)
== END ==
LOC: ZCOL.LAB 08:00
PROVIDERS: Family Medicine
DX: E78.5 Hyperlipidemia, unspecified (principal); K52.9 Noninfective gastroenteritis and colitis, unspecified

== ENCOUNTER → 2022-07-15 | Outpatient (REF) | payer MEDICARE, BC, MEDICAID | LOC: ZCOL.LAB 12:18 | DX: Z79.899 Other long term (current) drug therapy (principal) ==

== ENCOUNTER → 2023-05-08 | Outpatient (CLI) | payer MEDICARE ==
[~2023-05-08] MED LIST changes: +DULCOLAX TAB5 MG PO; +Iohexol 300 - 100 ML VIAL IV ONE; +MELATONIN3 M1; +NS 100 ML IV SCH; +SYNTHROID0.125 MG/T
== END ==
LOC: COL.RAD 13:07
DX: K40.90 Unilateral inguinal hernia, without obstruction or gangrene, not specified as recurrent (principal); M62.81 Muscle weakness (generalized); R19.7 Diarrhea, unspecified
CPT/HCPCS: Q9967